=== PATIENT | female | born 1945 | race Caucasian/White ===

== ENCOUNTER 2021-01-19 15:01 | Inpatient (IN) | payer MEDICARE, OTHER, SELFPAY ==
[2021-01-19 16:07] VITALS: BP 66/42; PULSE 58; RESP 17; TEMP 36.5; O2SAT 97; BMI 27.4
--- NOTE | 2021-01-19 16:08 | W.ED.GENADLT ---
Documented by User: Herman Yee DO 01/21/21 17:01 HPI - General Adult General: Chief complaint: ER Hold Stated complaint: PAIN PEEING Time Seen by Provider: 01/19/21 16:07 History of Present Illness: HPI narrative: 76-year-old female presents emergency with complaints of difficulty urinating. No family present she has some right-sided weakness is reported to have previously had a CVA with right-sided weakness. She came in by EMS. She answers questions but has a very weak voice she will follow simple commands and she tracks well. She denies any fever, diarrhea or cough at home. Onset (ago): unknown Severity: moderate Relieving factors: none Exacerbating factors: none Associated symptoms: Reports confusion, malaise and weakness; Deny chest pain, cough, diaphoresis, decreased appetite, dyspnea, fevers/chills, headache(s), nausea, rash, palpitations, seizures, short of breath, syncope or vomiting Treatments prior to arrival: none Review of Systems Const: Reports: malaise; Denies: diaphoresis ENMT: Denies: throat pain, ear or mastoid pain, nasal discharge or nasal congestion Card: Denies: chest pain, palpitations or syncope Resp: Denies: dyspnea GI: Denies: nausea or vomiting : Reports: difficulty voiding and dysuria; Denies: flank pain, urinary frequency or urinary urgency Skin/Breast: Denies: rash Neuro: Reports: confusion; Denies: headache(s) [facility] ED PFSH: Medical History Afib CAD (coronary artery disease) CVA (cerebral vascular accident) Diabetes GI bleed TIA (transient ischemic attack) Ulcerative (chronic) enterocolitis Surgical History Hx of CABG Family History Other CAD (coronary artery disease) Stroke Social History Smoking and tobacco status: never smoked Alcohol intake: never Substance/Drug Use: never Housing: House Physical Exam HENMT: COMMON NORMALS: normocephalic, atraumatic and hearing grossly normal bilaterally HEAD & SCALP: normocephalic and atraumatic Eye: COMMON NORMALS: Equal, round and reactive pupils present, EOMs intact bilaterally, conjunctivae normal and no scleral icterus CONJUNCTIVA: Yes conjunctivae normal PUPIL: Yes Equal, round and reactive pupils present Neck/C-Spine: COMMON NORMALS: no JVD Resp: COMMON NORMALS: normal respiratory effort, No retractions, No use of accessory muscles and clear to auscultation bilaterally AUSCULTATION: clear to auscultation bilaterally Cardio: COMMON NORMALS: no JVD, regular rate, regular rhythm and No murmurs present (Cardio) RATE: regular rate RHYTHM: regular rhythm GI: COMMON NORMALS: Soft to palpation and No hepatosplenomegaly present AUSCULTATION: Yes normoactive bowel sounds PALPATION: Yes Soft to palpation, No Tenderness to palpation present (GI), No Guarding due to palpation present (GI) and Yes No hepatosplenomegaly present Extremity: COMMON NORMALS: normal to inspection, capillary refill normal, no clubbing, cyanosis or edema, no calf tenderness and no pedal edema Skin: COMMON NORMALS: no rashes or lesions noted GENERAL SKIN EXAM: no rashes or lesions noted Course Vital Signs: Vital signs: Vital Signs Temperature 97.6 F 01/21/21 15:45 Pulse Rate 60 01/21/21 15:45 Respiratory Rate 18 01/21/21 15:45 Blood Pressure 131/72 01/21/21 15:45 Pulse Oximetry 96 01/21/21 15:45 MDM - General Adult MDM Narrative: Medical decision making narrative: NIH score assessed. There is no one available to tell us what her last known well time is. Nor to establish what her baseline is. There is history of previous strokes evidently with some right-sided weakness I believe there is probable overlap between today's episode and her old but we cannot determine. Turned over to Dr. Snider at change of see his note from diagnosis and disposition. Lab Data: Labs: Lab Results 01/19/21 01/19/21 01/19/21 Range/Units 16:11 16:11 16:11 WBC 11.2 H (4.0-10.0) 10^3/ uL RBC 4.54 (4.1-5.3) 10^6/u L Hgb 13.7 (11.5-15.3) g/dL Hct 41.1 (37.0-47.0) % MCV 90.5 (81-99) fL MCH 30.2 (28.0-34.0) pg MCHC 33.3 (30.0-36.0) g/dL RDW 13.7 (12.1-15.1) % Plt Count 259 (130-400) 10^3/c mm MPV 10.5 H (7.4-10.4) fL Neut % (Auto) 60.9 % Lymph % (Auto) 30.3 % Faulkner % (Auto) 7.3 % Eos % (Auto) 0.5 % Baso % (Auto) 0.7 % Neut # (Auto) 6.80 (1.8-7.7) 10^3/u L Lymph # (Auto) 3.4 (0.8-4.8) 10^3/u L Faulkner # (Auto) 0.8 (0.2-0.9) 10^3/u L Eos # (Auto) 0.1 (0.0-0.8) 10^3/u L Baso # (Auto) 0.1 (0.0-0.1) 10^3/u L Nucleated RBC % (a uto) 0 % Nucleated RBCs # 0.0 /100WBC Sodium 141 (136-145) mmol/L Potassium 3.7 (3.5-5.1) mmol/L Chloride 103 (98-107) mmol/L Carbon Dioxide 24 (22-29) mmol/L Anion Gap 17.7 (5-19) BUN 16 (8-23) mg/dL Creatinine 0.8 (0.5-0.9) mg/dL GFR Calculation Not Reportable Glucose 151 H (65-115) mg/dL POC Glucose (70-110) mg/dL Calculated Osmolal ity 296 H (285-295) mOsm/k g Lactic Acid 2.1 (0.5-2.2) mmol/L Calcium 9.3 (8.5-10.5) mg/dL Magnesium (1.7-2.3) mg/dL Total Bilirubin 0.7 (0.15-1.2) mg/dL AST 30 (0-32) U/L ALT 26 (0-33) U/L Alkaline Phosphata se 77 (35-105) IU/L Creatine Kinase 59 (26-192) U/L Troponin T Baselin e (0-10) ng/L Total Protein 6.6 (6.6-8.7) g/dL Albumin 4.1 (3.5-5.2) g/dL Globulin 2.5 (1.3-4.6) g/dL Lipase 48 (13-60) U/L TSH (0.27-4.20) uIU/ mL Urine Color (Yellow) Urine Appearance (CLEAR) Urine pH (5-7) Ur Specific Gravit y (1.005-1.030) Urine Protein (Negative) Urine Glucose (UA) (Normal) Urine Ketones (Negative) Urine Blood (Negative) Urine Nitrate (Negative) Urine Bilirubin (Negative) Urine Urobilinogen (Negative) mg/dL Ur Leukocyte Ching ase (Negative) SARS-CoV-2 Ag (Rap id) (Negative) 01/19/21 01/19/21 01/19/21 Range/Units 16:11 16:15 16:17 WBC (4.0-10.0) 10^3/ uL RBC (4.1-5.3) 10^6/u L Hgb (11.5-15.3) g/dL Hct (37.0-47.0) % MCV (81-99) fL MCH (28.0-34.0) pg MCHC (30.0-36.0) g/dL RDW (12.1-15.1) % Plt Count (130-400) 10^3/c mm MPV (7.4-10.4) fL Neut % (Auto) % Lymph % (Auto) % Faulkner % (Auto) % Eos % (Auto) % Baso % (Auto) % Neut # (Auto) (1.8-7.7) 10^3/u L Lymph # (Auto) (0.8-4.8) 10^3/u L Faulkner # (Auto) (0.2-0.9) 10^3/u L Eos # (Auto) (0.0-0.8) 10^3/u L Baso # (Auto) (0.0-0.1) 10^3/u L Nucleated RBC % (a uto) % Nucleated RBCs # /100WBC Sodium (136-145) mmol/L Potassium (3.5-5.1) mmol/L Chloride (98-107) mmol/L Carbon Dioxide (22-29) mmol/L Anion Gap (5-19) BUN (8-23) mg/dL Creatinine (0.5-0.9) mg/dL GFR Calculation Glucose (65-115) mg/dL POC Glucose 154 H (70-110) mg/dL Calculated Osmolal ity (285-295) mOsm/k g Lactic Acid (0.5-2.2) mmol/L Calcium (8.5-10.5) mg/dL Magnesium (1.7-2.3) mg/dL Total Bilirubin (0.15-1.2) mg/dL AST (0-32) U/L ALT (0-33) U/L Alkaline Phosphata se (35-105) IU/L Creatine Kinase (26-192) U/L Troponin T Baselin e 15 H (0-10) ng/L Total Protein (6.6-8.7) g/dL Albumin (3.5-5.2) g/dL Globulin (1.3-4.6) g/dL Lipase (13-60) U/L TSH 3.73 (0.27-4.20) uIU/ mL Urine Color (Yellow) Urine Appearance (CLEAR) Urine pH (5-7) Ur Specific Gravit y (1.005-1.030) Urine Protein (Negative) Urine Glucose (UA) (Normal) Urine Ketones (Negative) Urine Blood (Negative) Urine Nitrate (Negative) Urine Bilirubin (Negative) Urine Urobilinogen (Negative) mg/dL Ur Leukocyte Ching ase (Negative) SARS-CoV-2 Ag (Rap id) (Negative) 01/19/21 01/20/21 01/20/21 Range/Units 16:57 10:40 10:40 WBC 9.5 (4.0-10.0) 10^3/ uL RBC 3.70 L (4.1-5.3) 10^6/u L Hgb 11.4 L (11.5-15.3) g/dL Hct 34.8 L (37.0-47.0) % MCV 94.1 (81-99) fL MCH 30.8 (28.0-34.0) pg MCHC 32.8 (30.0-36.0) g/dL RDW 14.2 (12.1-15.1) % Plt Count 199 (130-400) 10^3/c mm MPV 10.5 H (7.4-10.4) fL Neut % (Auto) 61.2 % Lymph % (Auto) 28.4 % Faulkner % (Auto) 8.9 % Eos % (Auto) 0.7 % Baso % (Auto) 0.5 % Neut # (Auto) 5.78 (1.8-7.7) 10^3/u L Lymph # (Auto) 2.7 (0.8-4.8) 10^3/u L Faulkner # (Auto) 0.8 (0.2-0.9) 10^3/u L Eos # (Auto) 0.1 (0.0-0.8) 10^3/u L Baso # (Auto) 0.1 (0.0-0.1) 10^3/u L Nucleated RBC % (a uto) 0 % Nucleated RBCs # 0.0 /100WBC Sodium 140 (136-145) mmol/L Potassium 2.8 L* D (3.5-5.1) mmol/L Chloride 107 (98-107) mmol/L Carbon Dioxide 24 (22-29) mmol/L Anion Gap 11.8 (5-19) BUN 14 (8-23) mg/dL Creatinine 0.6 (0.5-0.9) mg/dL GFR Calculation Not Reportable Glucose 127 H (65-115) mg/dL POC Glucose (70-110) mg/dL Calculated Osmolal ity 292 (285-295) mOsm/k g Lactic Acid (0.5-2.2) mmol/L Calcium 8.7 (8.5-10.5) mg/dL Magnesium (1.7-2.3) mg/dL Total Bilirubin (0.15-1.2) mg/dL AST (0-32) U/L ALT (0-33) U/L Alkaline Phosphata se (35-105) IU/L Creatine Kinase (26-192) U/L Troponin T Baselin e (0-10) ng/L Total Protein (6.6-8.7) g/dL Albumin (3.5-5.2) g/dL Globulin (1.3-4.6) g/dL Lipase (13-60) U/L TSH (0.27-4.20) uIU/ mL Urine Color Yellow (Yellow) Urine Appearance Clear (CLEAR) Urine pH 6 (5-7) Ur Specific Gravit y 1.020 (1.005-1.030) Urine Protein Neg (Negative) Urine Glucose (UA) Norm (Normal) Urine Ketones Negative (Negative) Urine Blood Neg (Negative) Urine Nitrate Negative (Negative) Urine Bilirubin Neg (Negative) Urine Urobilinogen Norm (Negative) mg/dL Ur Leukocyte Ching ase Negative (Negative) SARS-CoV-2 Ag (Rap id) (Negative) 01/20/21 01/21/21 01/21/21 Range/Units 10:40 05:02 05:02 WBC 7.8 (4.0-10.0) 10^3/ uL RBC 3.77 L (4.1-5.3) 10^6/u L Hgb 11.5 (11.5-15.3) g/dL Hct 35.1 L (37.0-47.0) % MCV 93.1 (81-99) fL MCH 30.5 (28.0-34.0) pg MCHC 32.8 (30.0-36.0) g/dL RDW 14.1 (12.1-15.1) % Plt Count 196 (130-400) 10^3/c mm MPV 10.9 H (7.4-10.4) fL Neut % (Auto) 52.1 % Lymph % (Auto) 36.2 % Faulkner % (Auto) 9.6 % Eos % (Auto) 1.4 % Baso % (Auto) 0.6 % Neut # (Auto) 4.04 (1.8-7.7) 10^3/u L Lymph # (Auto) 2.8 (0.8-4.8) 10^3/u L Faulkner # (Auto) 0.8 (0.2-0.9) 10^3/u L Eos # (Auto) 0.1 (0.0-0.8) 10^3/u L Baso # (Auto) 0.1 (0.0-0.1) 10^3/u L Nucleated RBC % (a uto) 0 % Nucleated RBCs # 0.0 /100WBC Sodium 143 (136-145) mmol/L Potassium 4.3 (3.5-5.1) mmol/L Chloride 110 H (98-107) mmol/L Carbon Dioxide 24 (22-29) mmol/L Anion Gap 13.3 (5-19) BUN 13 (8-23) mg/dL Creatinine 0.6 (0.5-0.9) mg/dL GFR Calculation Not Reportable Glucose 80 (65-115) mg/dL POC Glucose (70-110) mg/dL Calculated Osmolal ity 295 (285-295) mOsm/k g Lactic Acid (0.5-2.2) mmol/L Calcium 8.5 (8.5-10.5) mg/dL Magnesium 1.6 L (1.7-2.3) mg/dL Total Bilirubin (0.15-1.2) mg/dL AST (0-32) U/L ALT (0-33) U/L Alkaline Phosphata se (35-105) IU/L Creatine Kinase (26-192) U/L Troponin T Baselin e (0-10) ng/L Total Protein (6.6-8.7) g/dL Albumin (3.5-5.2) g/dL Globulin (1.3-4.6) g/dL Lipase (13-60) U/L TSH (0.27-4.20) uIU/ mL Urine Color (Yellow) Urine Appearance (CLEAR) Urine pH (5-7) Ur Specific Gravit y (1.005-1.030) Urine Protein (Negative) Urine Glucose (UA) (Normal) Urine Ketones (Negative) Urine Blood (Negative) Urine Nitrate (Negative) Urine Bilirubin (Negative) Urine Urobilinogen (Negative) mg/dL Ur Leukocyte Ching ase (Negative) SARS-CoV-2 Ag (Rap id) (Negative) 01/21/21 Range/Units 12:36 WBC (4.0-10.0) 10^3/ uL RBC (4.1-5.3) 10^6/u L Hgb (11.5-15.3) g/dL Hct (37.0-47.0) % MCV (81-99) fL MCH (28.0-34.0) pg MCHC (30.0-36.0) g/dL RDW (12.1-15.1) % Plt Count (130-400) 10^3/c mm MPV (7.4-10.4) fL Neut % (Auto) % Lymph % (Auto) % Faulkner % (Auto) % Eos % (Auto) % Baso % (Auto) % Neut # (Auto) (1.8-7.7) 10^3/u L Lymph # (Auto) (0.8-4.8) 10^3/u L Faulkner # (Auto) (0.2-0.9) 10^3/u L Eos # (Auto) (0.0-0.8) 10^3/u L Baso # (Auto) (0.0-0.1) 10^3/u L Nucleated RBC % (a uto) % Nucleated RBCs # /100WBC Sodium (136-145) mmol/L Potassium (3.5-5.1) mmol/L Chloride (98-107) mmol/L Carbon Dioxide (22-29) mmol/L Anion Gap (5-19) BUN (8-23) mg/dL Creatinine (0.5-0.9) mg/dL GFR Calculation Glucose (65-115) mg/dL POC Glucose (70-110) mg/dL Calculated Osmolal ity (285-295) mOsm/k g Lactic Acid (0.5-2.2) mmol/L Calcium (8.5-10.5) mg/dL Magnesium (1.7-2.3) mg/dL Total Bilirubin (0.15-1.2) mg/dL AST (0-32) U/L ALT (0-33) U/L Alkaline Phosphata se (35-105) IU/L Creatine Kinase (26-192) U/L Troponin T Baselin e (0-10) ng/L Total Protein (6.6-8.7) g/dL Albumin (3.5-5.2) g/dL Globulin (1.3-4.6) g/dL Lipase (13-60) U/L TSH (0.27-4.20) uIU/ mL Urine Color (Yellow) Urine Appearance (CLEAR) Urine pH (5-7) Ur Specific Gravit y (1.005-1.030) Urine Protein (Negative) Urine Glucose (UA) (Normal) Urine Ketones (Negative) Urine Blood (Negative) Urine Nitrate (Negative) Urine Bilirubin (Negative) Urine Urobilinogen (Negative) mg/dL Ur Leukocyte Ching ase (Negative) SARS-CoV-2 Ag (Rap id) Negative (Negative) Discharge Plan Discharge Patient Disposition: Admitted As Inpatient Admit Provider: Clara Funk Clinical Impression: Acute CVA (cerebrovascular accident) Condition: Stable Coding Level of Care Code 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 Comprehensive NIH stroke score NIHSS Level Of Consciousness - 1a: 1 Level Of Consciousness Questions - 1b: One Correct Level Of Consciousness Commands - 1c: Both Correct Best Gaze - 2: Normal Visual Bateman - 3: No Visual Loss Facial Palsy - 4: Minor Paralysis Motor Arm Right - 5: No Drift Motor Arm Left - 5: No Drift Motor Leg Right - 6: Drift Motor Leg Left - 6: No Drift Limb Ataxia - 7: Present In One Limb Sensory - 8: Normal Best Language - 9: Mild/Moderate Aphasia Dysarthia - 10: Mild/Moderate Dysarthia Extinction And Inattention - 11: 0 Score Total Score: 7 Documented by User: Kevin Snider MD 01/19/21 19:42 HPI - General Adult General: Chief complaint: ER Hold Stated complaint: PAIN PEEING Time Seen by Provider: 01/19/21 16:07 [facility] ED PFSH: Medical History Afib CAD (coronary artery disease) CVA (cerebral vascular accident) Diabetes GI bleed TIA (transient ischemic attack) Ulcerative (chronic) enterocolitis Surgical History Hx of CABG Family History Other CAD (coronary artery disease) Stroke Social History Smoking and tobacco status: never smoked Alcohol intake: never Substance/Drug Use: never Housing: House Course Vital Signs: Vital signs: Vital Signs Temperature 97.6 F 01/21/21 15:45 Pulse Rate 60 01/21/21 15:45 Respiratory Rate 18 01/21/21 15:45 Blood Pressure 131/72 01/21/21 15:45 Pulse Oximetry 96 01/21/21 15:45 MDM - General Adult MDM Narrative: Medical decision making narrative: Patient presents here with right-sided weakness with a possible CVA. CT showed subacute versus chronic. Her last known well is not known as well or her exact baseline. I spoke to the hospitalist will admit for MRI. Patient has been stable while here. Lab Data: Labs: Lab Results 01/19/21 01/19/21 01/19/21 Range/Units 16:11 16:11 16:11 WBC 11.2 H (4.0-10.0) 10^3/ uL RBC 4.54 (4.1-5.3) 10^6/u L Hgb 13.7 (11.5-15.3) g/dL Hct 41.1 (37.0-47.0) % MCV 90.5 (81-99) fL MCH 30.2 (28.0-34.0) pg MCHC 33.3 (30.0-36.0) g/dL RDW 13.7 (12.1-15.1) % Plt Count 259 (130-400) 10^3/c mm MPV 10.5 H (7.4-10.4) fL Neut % (Auto) 60.9 % Lymph % (Auto) 30.3 % Faulkner % (Auto) 7.3 % Eos % (Auto) 0.5 % Baso % (Auto) 0.7 % Neut # (Auto) 6.80 (1.8-7.7) 10^3/u L Lymph # (Auto) 3.4 (0.8-4.8) 10^3/u L Faulkner # (Auto) 0.8 (0.2-0.9) 10^3/u L Eos # (Auto) 0.1 (0.0-0.8) 10^3/u L Baso # (Auto) 0.1 (0.0-0.1) 10^3/u L Nucleated RBC % (a uto) 0 % Nucleated RBCs # 0.0 /100WBC Sodium 141 (136-145) mmol/L Potassium 3.7 (3.5-5.1) mmol/L Chloride 103 (98-107) mmol/L Carbon Dioxide 24 (22-29) mmol/L Anion Gap 17.7 (5-19) BUN 16 (8-23) mg/dL Creatinine 0.8 (0.5-0.9) mg/dL GFR Calculation Not Reportable Glucose 151 H (65-115) mg/dL POC Glucose (70-110) mg/dL Calculated Osmolal ity 296 H (285-295) mOsm/k g Lactic Acid 2.1 (0.5-2.2) mmol/L Calcium 9.3 (8.5-10.5) mg/dL Magnesium (1.7-2.3) mg/dL Total Bilirubin 0.7 (0.15-1.2) mg/dL AST 30 (0-32) U/L ALT 26 (0-33) U/L Alkaline Phosphata se 77 (35-105) IU/L Creatine Kinase 59 (26-192) U/L Troponin T Baselin e (0-10) ng/L Total Protein 6.6 (6.6-8.7) g/dL Albumin 4.1 (3.5-5.2) g/dL Globulin 2.5 (1.3-4.6) g/dL Lipase 48 (13-60) U/L TSH (0.27-4.20) uIU/ mL Urine Color (Yellow) Urine Appearance (CLEAR) Urine pH (5-7) Ur Specific Gravit y (1.005-1.030) Urine Protein (Negative) Urine Glucose (UA) (Normal) Urine Ketones (Negative) Urine Blood (Negative) Urine Nitrate (Negative) Urine Bilirubin (Negative) Urine Urobilinogen (Negative) mg/dL Ur Leukocyte Ching ase (Negative) SARS-CoV-2 Ag (Rap id) (Negative) 01/19/21 01/19/21 01/19/21 Range/Units 16:11 16:15 16:17 WBC (4.0-10.0) 10^3/ uL RBC (4.1-5.3) 10^6/u L Hgb (11.5-15.3) g/dL Hct (37.0-47.0) % MCV (81-99) fL MCH (28.0-34.0) pg MCHC (30.0-36.0) g/dL RDW (12.1-15.1) % Plt Count (130-400) 10^3/c mm MPV (7.4-10.4) fL Neut % (Auto) % Lymph % (Auto) % Faulkner % (Auto) % Eos % (Auto) % Baso % (Auto) % Neut # (Auto) (1.8-7.7) 10^3/u L Lymph # (Auto) (0.8-4.8) 10^3/u L Faulkner # (Auto) (0.2-0.9) 10^3/u L Eos # (Auto) (0.0-0.8) 10^3/u L Baso # (Auto) (0.0-0.1) 10^3/u L Nucleated RBC % (a uto) % Nucleated RBCs # /100WBC Sodium (136-145) mmol/L Potassium (3.5-5.1) mmol/L Chloride (98-107) mmol/L Carbon Dioxide (22-29) mmol/L Anion Gap (5-19) BUN (8-23) mg/dL Creatinine (0.5-0.9) mg/dL GFR Calculation Glucose (65-115) mg/dL POC Glucose 154 H (70-110) mg/dL Calculated Osmolal ity (285-295) mOsm/k g Lactic Acid (0.5-2.2) mmol/L Calcium (8.5-10.5) mg/dL Magnesium (1.7-2.3) mg/dL Total Bilirubin (0.15-1.2) mg/dL AST (0-32) U/L ALT (0-33) U/L Alkaline Phosphata se (35-105) IU/L Creatine Kinase (26-192) U/L Troponin T Baselin e 15 H (0-10) ng/L Total Protein (6.6-8.7) g/dL Albumin (3.5-5.2) g/dL Globulin (1.3-4.6) g/dL Lipase (13-60) U/L TSH 3.73 (0.27-4.20) uIU/ mL Urine Color (Yellow) Urine Appearance (CLEAR) Urine pH (5-7) Ur Specific Gravit y (1.005-1.030) Urine Protein (Negative) Urine Glucose (UA) (Normal) Urine Ketones (Negative) Urine Blood (Negative) Urine Nitrate (Negative) Urine Bilirubin (Negative) Urine Urobilinogen (Negative) mg/dL Ur Leukocyte Ching ase (Negative) SARS-CoV-2 Ag (Rap id) (Negative) 01/19/21 01/20/21 01/20/21 Range/Units 16:57 10:40 10:40 WBC 9.5 (4.0-10.0) 10^3/ uL RBC 3.70 L (4.1-5.3) 10^6/u L Hgb 11.4 L (11.5-15.3) g/dL Hct 34.8 L (37.0-47.0) % MCV 94.1 (81-99) fL MCH 30.8 (28.0-34.0) pg MCHC 32.8 (30.0-36.0) g/dL RDW 14.2 (12.1-15.1) % Plt Count 199 (130-400) 10^3/c mm MPV 10.5 H (7.4-10.4) fL Neut % (Auto) 61.2 % Lymph % (Auto) 28.4 % Faulkner % (Auto) 8.9 % Eos % (Auto) 0.7 % Baso % (Auto) 0.5 % Neut # (Auto) 5.78 (1.8-7.7) 10^3/u L Lymph # (Auto) 2.7 (0.8-4.8) 10^3/u L Faulkner # (Auto) 0.8 (0.2-0.9) 10^3/u L Eos # (Auto) 0.1 (0.0-0.8) 10^3/u L Baso # (Auto) 0.1 (0.0-0.1) 10^3/u L Nucleated RBC % (a uto) 0 % Nucleated RBCs # 0.0 /100WBC Sodium 140 (136-145) mmol/L Potassium 2.8 L* D (3.5-5.1) mmol/L Chloride 107 (98-107) mmol/L Carbon Dioxide 24 (22-29) mmol/L Anion Gap 11.8 (5-19) BUN 14 (8-23) mg/dL Creatinine 0.6 (0.5-0.9) mg/dL GFR Calculation Not Reportable Glucose 127 H (65-115) mg/dL POC Glucose (70-110) mg/dL Calculated Osmolal ity 292 (285-295) mOsm/k g Lactic Acid (0.5-2.2) mmol/L Calcium 8.7 (8.5-10.5) mg/dL Magnesium (1.7-2.3) mg/dL Total Bilirubin (0.15-1.2) mg/dL AST (0-32) U/L ALT (0-33) U/L Alkaline Phosphata se (35-105) IU/L Creatine Kinase (26-192) U/L Troponin T Baselin e (0-10) ng/L Total Protein (6.6-8.7) g/dL Albumin (3.5-5.2) g/dL Globulin (1.3-4.6) g/dL Lipase (13-60) U/L TSH (0.27-4.20) uIU/ mL Urine Color Yellow (Yellow) Urine Appearance Clear (CLEAR) Urine pH 6 (5-7) Ur Specific Gravit y 1.020 (1.005-1.030) Urine Protein Neg (Negative) Urine Glucose (UA) Norm (Normal) Urine Ketones Negative (Negative) Urine Blood Neg (Negative) Urine Nitrate Negative (Negative) Urine Bilirubin Neg (Negative) Urine Urobilinogen Norm (Negative) mg/dL Ur Leukocyte Ching ase Negative (Negative) SARS-CoV-2 Ag (Rap id) (Negative) 01/20/21 01/21/21 01/21/21 Range/Units 10:40 05:02 05:02 WBC 7.8 (4.0-10.0) 10^3/ uL RBC 3.77 L (4.1-5.3) 10^6/u L Hgb 11.5 (11.5-15.3) g/dL Hct 35.1 L (37.0-47.0) % MCV 93.1 (81-99) fL MCH 30.5 (28.0-34.0) pg MCHC 32.8 (30.0-36.0) g/dL RDW 14.1 (12.1-15.1) % Plt Count 196 (130-400) 10^3/c mm MPV 10.9 H (7.4-10.4) fL Neut % (Auto) 52.1 % Lymph % (Auto) 36.2 % Faulkner % (Auto) 9.6 % Eos % (Auto) 1.4 % Baso % (Auto) 0.6 % Neut # (Auto) 4.04 (1.8-7.7) 10^3/u L Lymph # (Auto) 2.8 (0.8-4.8) 10^3/u L Faulkner # (Auto) 0.8 (0.2-0.9) 10^3/u L Eos # (Auto) 0.1 (0.0-0.8) 10^3/u L Baso # (Auto) 0.1 (0.0-0.1) 10^3/u L Nucleated RBC % (a uto) 0 % Nucleated RBCs # 0.0 /100WBC Sodium 143 (136-145) mmol/L Potassium 4.3 (3.5-5.1) mmol/L Chloride 110 H (98-107) mmol/L Carbon Dioxide 24 (22-29) mmol/L Anion Gap 13.3 (5-19) BUN 13 (8-23) mg/dL Creatinine 0.6 (0.5-0.9) mg/dL GFR Calculation Not Reportable Glucose 80 (65-115) mg/dL POC Glucose (70-110) mg/dL Calculated Osmolal ity 295 (285-295) mOsm/k g Lactic Acid (0.5-2.2) mmol/L Calcium 8.5 (8.5-10.5) mg/dL Magnesium 1.6 L (1.7-2.3) mg/dL Total Bilirubin (0.15-1.2) mg/dL AST (0-32) U/L ALT (0-33) U/L Alkaline Phosphata se (35-105) IU/L Creatine Kinase (26-192) U/L Troponin T Baselin e (0-10) ng/L Total Protein (6.6-8.7) g/dL Albumin (3.5-5.2) g/dL Globulin (1.3-4.6) g/dL Lipase (13-60) U/L TSH (0.27-4.20) uIU/ mL Urine Color (Yellow) Urine Appearance (CLEAR) Urine pH (5-7) Ur Specific Gravit y (1.005-1.030) Urine Protein (Negative) Urine Glucose (UA) (Normal) Urine Ketones (Negative) Urine Blood (Negative) Urine Nitrate (Negative) Urine Bilirubin (Negative) Urine Urobilinogen (Negative) mg/dL Ur Leukocyte Ching ase (Negative) SARS-CoV-2 Ag (Rap id) (Negative) 01/21/21 Range/Units 12:36 WBC (4.0-10.0) 10^3/ uL RBC (4.1-5.3) 10^6/u L Hgb (11.5-15.3) g/dL Hct (37.0-47.0) % MCV (81-99) fL MCH (28.0-34.0) pg MCHC (30.0-36.0) g/dL RDW (12.1-15.1) % Plt Count (130-400) 10^3/c mm MPV (7.4-10.4) fL Neut % (Auto) % Lymph % (Auto) % Faulkner % (Auto) % Eos % (Auto) % Baso % (Auto) % Neut # (Auto) (1.8-7.7) 10^3/u L Lymph # (Auto) (0.8-4.8) 10^3/u L Faulkner # (Auto) (0.2-0.9) 10^3/u L Eos # (Auto) (0.0-0.8) 10^3/u L Baso # (Auto) (0.0-0.1) 10^3/u L Nucleated RBC % (a uto) % Nucleated RBCs # /100WBC Sodium (136-145) mmol/L Potassium (3.5-5.1) mmol/L Chloride (98-107) mmol/L Carbon Dioxide (22-29) mmol/L Anion Gap (5-19) BUN (8-23) mg/dL Creatinine (0.5-0.9) mg/dL GFR Calculation Glucose (65-115) mg/dL POC Glucose (70-110) mg/dL Calculated Osmolal ity (285-295) mOsm/k g Lactic Acid (0.5-2.2) mmol/L Calcium (8.5-10.5) mg/dL Magnesium (1.7-2.3) mg/dL Total Bilirubin (0.15-1.2) mg/dL AST (0-32) U/L ALT (0-33) U/L Alkaline Phosphata se (35-105) IU/L Creatine Kinase (26-192) U/L Troponin T Baselin e (0-10) ng/L Total Protein (6.6-8.7) g/dL Albumin (3.5-5.2) g/dL Globulin (1.3-4.6) g/dL Lipase (13-60) U/L TSH (0.27-4.20) uIU/ mL Urine Color (Yellow) Urine Appearance (CLEAR) Urine pH (5-7) Ur Specific Gravit y (1.005-1.030) Urine Protein (Negative) Urine Glucose (UA) (Normal) Urine Ketones (Negative) Urine Blood (Negative) Urine Nitrate (Negative) Urine Bilirubin (Negative) Urine Urobilinogen (Negative) mg/dL Ur Leukocyte Ching ase (Negative) SARS-CoV-2 Ag (Rap id) Negative (Negative) Imaging Data^: CT Head: Radiologist's impression: [address] [place] [id number] [address] Scan Report Signed Patient: Carolina Barcenas Unit #: [id number] : 1945 Age/Sex: 76 / F ADM Date: 01/19/21 Loc: ER Room/Bed: Attending Dr: Ordering Provider/Ordering MD: Herman Yee DO Date of Service: 01/19/21 Procedure(s): CT head wo con* [id number] Accession Number(s): [id number] Report Number: [id number] PROCEDURE INFORMATION: Exam: CT Head Without Contrast Exam date and time: 01/19/2021 4:07 PM Age: 76 years old Clinical indication: Pain; Headache; Additional info: Weakness, HX parkinsons TECHNIQUE: Imaging protocol: Computed tomography of the head without contrast. Radiation optimization: All CT scans at this facility use at least one of these dose optimization techniques: automated exposure control; mA and/or kV adjustment per patient size (includes targeted exams where dose is matched to clinical indication); or iterative reconstruction. COMPARISON: CT head wo con* [id number] 04/29/2015 7:40 AM RADIATION DOSE METRICS: Total DLP (mGy-cm): 766.76 FINDINGS: Brain: Advanced low-attenuation signal within the periventricular and deep white matter tracts suggestive of chronic small vessel ischemic disease. No intracranial hemorrhage. Moderate diffuse cerebral atrophy. There is low attenuation change within the right anterolateral temporal lobe involving both the copeland and white matter which could indicate an age indeterminate infarct in this region. Bilateral chronic lacunar infarcts within the basal ganglia. Cerebral ventricles: No ventriculomegaly. Paranasal sinuses: Visualized sinuses are unremarkable. No fluid levels. Mastoid air cells: Visualized mastoid air cells are well aerated. Bones/joints: Unremarkable. No acute fracture. Soft tissues: Unremarkable. CT/CT head wo con* [id number] IMPRESSION: 1. No intracranial hemorrhage. 2. Low-attenuation signal within the anterolateral right temporal lobe. Imaging appearance is favored to be represent chronic sequela of prior infarct/insult as there is asymmetric atrophy of the right temporal lobe. If there is clinical concern for acute/subacute component, this can be further evaluate with MRI of the brain. 3. Sequela of advanced chronic small vessel ischemic disease and bilateral lacunar infarcts. Moderate diffuse cerebral atrophy. Radiation Dose CTDIVOL = (mGy): DLP = 766.76 (mGy-cm) Discharge Plan Discharge Patient Disposition: Admitted As Inpatient Admit Provider: Clara Funk Clinical Impression: Acute CVA (cerebrovascular accident) Condition: Stable Coding Level of Care Code ED Photographic Equipment Mechanic for Karlg Fwd Exam Comprehensive
--- NOTE | 2021-01-19 16:11 | ECG_ITS ---
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 Measurements Intervals G[place] Rate: 53 P: 109 AL: 218 QRS: 18 QRSD: 110 T: 26 QT: 475 QTc: 448 Interpretive Statements SINUS BRADYCARDIA WITH FIRST DEGREE AV BLOCK WITH OCCASIONAL SUPRAVENTRICULAR PREMATURE COMPLEXES SEPTAL MYOCARDIAL INFARCTION [40+ ms Q WAVE IN V1/V2], PROBABLY OLD Compared to ECG 04/29/2015 18:53:30 First degree AV block now present Myocardial infarct finding now present Sinus rhythm no longer present T-wave abnormality no longer present Possible ischemia no longer present Electronically Signed On 01-22-2021 9:54:54 CDT by Carolina Novoa M.D. [id number]
[2021-01-19 16:17] LABS: Glucose Point of Care 154 mg/dL (70-110)
[2021-01-19 16:23] LABS: Basophils # 0.1 10^3/uL (0.0-0.1); Basophils % 0.7 %; Eosinophils # 0.1 10^3/uL (0.0-0.8); Eosinophils % 0.5 %; Hematocrit 41.1 % (37.0-47.0); Hemoglobin 13.7 g/dL (11.5-15.3); Lymphocytes # 3.4 10^3/uL (0.8-4.8); Lymphocytes % 30.3 %; Mean Corpuscular HGB Conc 33.3 g/dL (30.0-36.0); Mean Corpuscular Hemoglobin 30.2 pg (28.0-34.0); Mean Corpuscular Volume 90.5 fL (81-99); Mean Platelet Volume 10.5 fL (7.4-10.4); Monocytes # 0.8 10^3/uL (0.2-0.9); Monocytes % 7.3 %; Neutrophils % 60.9 %; Nucleated Red Blood Cells % 0 %; Platelet Count 259 10^3/cmm (130-400); Red Blood Count 4.54 10^6/uL (4.1-5.3); Red Cell Distribution Width 13.7 % (12.1-15.1); White Blood Count 11.2 10^3/uL (4.0-10.0)
[2021-01-19 16:41] LABS: Alanine Aminotransferase 26 U/L (0-33); Albumin Level 4.1 g/dL (3.5-5.2); Alkaline Phosphatase 77 IU/L (35-105); Blood Urea Nitrogen 16 mg/dL (8-23); Calcium 9.3 mg/dL (8.5-10.5); Carbon Dioxide 24 mmol/L (22-29); Chloride 103 mmol/L (98-107); Creatine Phosphokinase 59 U/L (26-192); Creatinine Clr Calc Pharmacy 54.4958; Globulin 2.5 g/dL (1.3-4.6); Glucose 151 mg/dL (65-115); Lipase 48 U/L (13-60); Osmolality Calculated 296 mOsm/kg (285-295); Sodium 141 mmol/L (136-145); Total Bilirubin 0.7 mg/dL (0.15-1.2); Total Protein 6.6 g/dL (6.6-8.7)
[2021-01-19 16:42] LABS: Lactic Sepsis W/Reflex 2.1 mmol/L (0.5-2.2)
[2021-01-19 16:46] LABS: Troponin(5th) Baseline 15 ng/L (0-10)
[2021-01-19 16:49] LABS: Anion Gap 17.7 (5-19); Aspartate Amino Transferase 30 U/L (0-32); Potassium 3.7 mmol/L (3.5-5.1)
[2021-01-19] MEDS: sodium chloride 0.9% 2,109.21 ML 2109.21 ML IV (16:50)
[2021-01-19 16:58] VITALS: BP 114/51; PULSE 54; RESP 19; O2SAT 94
[2021-01-19 17:49] LABS: Add Urine Microscopic? NO; Charge for UA Resulting for Rev
[2021-01-19 17:52] LABS: Bilirubin Urine Neg (Negative); Blood Urine Neg (Negative); Glucose Urine UA Norm (Normal); Ketones Urine Negative (Negative); Leukocyte Esterase Urine Negative (Negative); Nitrate Urine Negative (Negative); Protein Urine Neg (Negative); Urine Appearance Clear (CLEAR); Urine Color Yellow (Yellow); Urobilinogen Urine Norm (Negative); pH Urine 6 (5-7)
[2021-01-19 18:03] LABS: Reflex Lactate Order REFLEX LACTIC ORDERD
--- NOTE | 2021-01-19 18:39 | PC.PHAR ---
PT UNABLE TO CONFIRM MEDICATIONS. PT STATES THAT HER SON HELPS HER. I SPOKE WITH HIM, AT LENGTH, BUT I DON'T THINK HE KNOWS MUCH ABOUT HER MEDICATION. WE WENT OVER THEM AT FIRST, THEN HE REALLY GOT OFF TARGET. MUCH LATER IN THE CONVERSATION, PT'S SON STATES THAT SHE WAS RECENTLY IN A HALFWAY. TRIED TO CONTACT THEM AND GET A MED LIST, BUT COULD NOT. LATER STILL, HE STATES THAT SHE HAS HOME HEALTH. WE TRIED REACHING HOME HEALTH, BUT THEY WERE CLOSED. RIGHT NOW, GOING BY HER MEDICATION HISTORY AND PHARMACY LIST.
[2021-01-19 18:44] VITALS: BP 146/66; PULSE 53; RESP 19; O2SAT 96
--- NOTE | 2021-01-19 19:15 | PC.PHAR ---
PT'S HOME HEALTH NURSE CALLED IN AND CONFIRMED ALL OF HER MEDICATION. PLEASE DISREGARD THE LAST NOTE.
--- NOTE | 2021-01-19 19:21 | P.HP_ITS ---
Providers/Chief Complaint Primary Care Provider: Jairo Butterfield DO Chief Complaint: PAIN PEEING History of Present Illness Carolina Barcenas is a 76 year old female who has a history of multiple strokes in the past, history of atrial fibrillation not a candidate of anticoagulation due to risk of fall, presented today with chief complaint of generalized weakness. Patient is stating that she spent 6 weeks at [facility] after her base of the brain stroke(she is not sure about the etiology however endorsing multiple history of stroke in the past). She was discharged on Tuesday from that facility last week. At home she has been experiencing weakness and lethargy. Initially she was able to use walker but her son has been very cautious and due to increased weakness he sent her to the hospital for further evaluation. From previous strokes she has weakness of right side of her body. Endorsing a fall yesterday which is attributing to slipping because of her silky bed sheet. She was trying to reposition herself after using bedside commode when slipped off the bed and landed on the floor. She is denying chest pain or syncopal events. No recent fever shortness of breath or chest pain. She has not noticed any new change in her vision. She was an avid reader however not able to read books anymore Diagnosis in the ER, she has left-sided inferior quadrantanopsia otherwise no new weakness noted, hemodynamically stable, patient will be admitted for MRI in the morning CT head showed concerning changes of right temporal lobe and bilateral lacunar infarct Patient was eating without any difficulty when entered the room, NIH score during my evaluation 1 She has been vaccinated with first dose of messenger RNA vaccine about 2 weeks ago, denies shortness of breath, fever, diarrhea Review of Systems Const: Reports: body aches, fatigue and malaise; Denies: fever(s) Eyes: Denies: change in vision ENMT: Denies: throat pain Card: Denies: chest pain Resp: Denies: dyspnea GI: Denies: abdominal pain : Denies: flank pain Musc: Reports: joint stiffness and muscle cramps; Denies: neck pain Skin/Breast: Denies: rash Neuro: Reports: difficulty walking Psych: Denies: anxiety Endo: Denies: polyuria Raymond/Lymph: Denies: easy bruising All/Imm: Denies: urticaria Medications/Allergies Home Medications Medication Instructions Recorded Confirmed Last Taken Type amiodarone 200 mg PO DAILY 01/19/21 01/19/21 01/19/21 History apixaban [Eliquis] 5 mg PO BID 01/19/21 01/19/21 Unknown History citalopram [Celexa] 20 mg PO BEDTIME 01/19/21 01/19/21 01/18/21 History clonidine HCl 0.1 mg PO PRN 01/19/21 01/19/21 Unknown History gabapentin 100 mg PO DAILY 01/19/21 01/19/21 01/19/21 History hydrocodone-acetaminophen [[place]] 1 tab PO Q4H PRN 01/19/21 01/19/21 Unknown History isosorbide mononitrate 60 mg PO DAILY 01/19/21 01/19/21 01/19/21 History lisinopril 20 mg PO DAILY 01/19/21 01/19/21 01/19/21 History metoprolol tartrate 50 mg PO DAILY 01/19/21 01/19/21 01/19/21 History nitrofurantoin monohyd/m-cryst 100 mg PO Q12H 01/19/21 01/19/21 01/19/21 History [Macrobid] omeprazole 10 mg PO DAILY 01/19/21 01/19/21 01/19/21 History Allergies Allergy/AdvReac Type Severity Reaction Status Date / Time codeine Allergy ALGY-Anaphy Verified 01/19/21 16:06 laxis PFSH Acute PFSH: Medical History Afib CAD (coronary artery disease) CVA (cerebral vascular accident) Diabetes GI bleed TIA (transient ischemic attack) Ulcerative (chronic) enterocolitis Surgical History Hx of CABG Family History Other CAD (coronary artery disease) Stroke Social History Smoking and tobacco status: never smoked Alcohol intake: never Substance/Drug Use: never Housing: House Vitals/I&O/Wt Last Vital Signs Temp 97.7 F 01/19/21 16:07 Pulse 53 L 01/19/21 18:44 Resp 19 H 01/19/21 18:44 BP 146/66 01/19/21 18:44 Pulse Ox 96 01/19/21 18:44 Weight last 48 hrs Weight 70.307 kg Physical Exam Narrative: EXAM NARRATIVE: Very pleasant elderly female Appears stated age Euvolemic S1, S2 variable no murmur appreciated no signs of heart failure Abdomen soft EOMI, PERRLA Left-sided inferior quadrantanopsia Sensations intact NIH 1 for mild weakness of right arm and leg Awake alert into x3 GCS 15 No acute respite distress saturating well on room air No joint swelling or signs of cellulitis Bilateral breath sounds without adventitious rhonchi or crackles Data : 01/19/21 16:11 01/19/21 16:11 A&P Assessment and plan (1) Acute CVA (cerebrovascular accident): Status: Acute Additional A&P Information SubAcute CVA Patient is endorsing history of recurrent TIA/CVA Per CT scan of head seems to be showing chronic sequelae of prior stroke Has history of atrial fibrillation, not a candidate of anticoagulation due to risk of fall Recent stroke 6 to 8 weeks ago, patient is not sure about the etiology and stating she was told that she had stroke of base of her brain (sometimes she misses her target and her movements of arms are clumsy, however able to do finger-nose test appropriately during my evaluation in the ER) Will request ISRA, however does not have typical features of vasculitis No signs of mucosal ulcers NIH 1 We will request MRI of brain in the morning I will add dual antiplatelet therapy along high-dose statins Allow permissive hypertension PT evaluation Request TSH Cardiac diet Full code DVT prophylaxis Lovenox Attestations Medical Necessity Statement*: Anticipating discharge within 48 hours Time Spent in Patient Care: 16 - 35 minutes Coding Level of Care Code Acute Vp Communications for Timmy Foley Diagnoses Acute CVA (cerebrovascular accident) I63.9
[2021-01-19 20:27] VITALS: BP 131/40; PULSE 53; RESP 19; O2SAT 94
[2021-01-19 21:24] VITALS: BP 145/53; PULSE 94; RESP 18; O2SAT 94
--- NOTE | 2021-01-19 22:11 | ECG_ITS ---
[facility] ED Test Date: 2021-01-19 Pat Name: Carolina Barcenas Department: Room: Gender: Female Dry Color Mixer: : 1945 Requested By: Herman Guillory Order Number: [id number] Reading MD: Carolina Novoa M.D. Measurements Intervals [place] Rate: 54 P: 93 OR: 220 QRS: 19 QRSD: 110 T: -78 QT: 468 QTc: 448 Interpretive Statements SINUS BRADYCARDIA WITH SINUS ARRHYTHMIA WITH FIRST DEGREE AV BLOCK SEPTAL MYOCARDIAL INFARCTION [40+ ms Q WAVE IN V1/V2], PROBABLY OLD MODERATE T-WAVE ABNORMALITY, CONSIDER ANTEROLATERAL ISCHEMIA [-0.1+ mV T WAVE IN V3-V6] Compared to ECG 01/19/2021 16:08:14 T-wave abnormality now present Possible ischemia now present Myocardial infarct finding still present Electronically Signed On 01-29-2021 10:10:53 CDT by Carolina Novoa M.D. [id number]
[2021-01-19 22:30] LABS: Thyroid Stimulating Hormone 3.73 uIU/mL (0.27-4.20)
[2021-01-19 23:32] VITALS: BP 158/62; PULSE 51; RESP 19; O2SAT 95
[2021-01-20] VITALS (14 sets, daily range): BP systolic 137–203; BP diastolic 42–76; PULSE 53–64; RESP 12–22; TEMP 36.3–36.7; O2SAT 91–98; BMI 27.4
--- NOTE | 2021-01-20 04:59 | PC.NURSE ---
Dr. Funk notified of patient's blood pressure of 203/76. Orders received for IV labetalol IVP 10 mg once. Confirmed orders.
[2021-01-20] MEDS: labetalol 5 mg/mL SDV 20mL 10 MG IVP (05:28)
[2021-01-20] MEDS: enoxaparin 40 mg/0.4 mL Syringe SUBCUT (05:30)
[2021-01-20] MEDS: metoprolol tartrate 25 mg Tablet PO (08:48)
[2021-01-20] MEDS: atorvastatin 40 mg Tablet 80 MG PO (08:48)
[2021-01-20] MEDS: clopidogrel 75 mg Tablet PO (08:48)
[2021-01-20] MEDS: isosorbide mononitrate ER 60 mg Tablet PO (08:49)
[2021-01-20] MEDS: amiodarone 200 mg Tablet PO (08:49)
[2021-01-20] MEDS: aspirin 81 mg EC Tablet PO (08:49)
[2021-01-20] MEDS: lisinopril 20 mg Tablet PO (08:49)
[2021-01-20] MEDS: gabapentin 100 mg Capsule PO (08:49)
[2021-01-20 10:52] LABS: Basophils # 0.1 10^3/uL (0.0-0.1); Basophils % 0.5 %; Eosinophils # 0.1 10^3/uL (0.0-0.8); Eosinophils % 0.7 %; Hematocrit 34.8 % (37.0-47.0); Hemoglobin 11.4 g/dL (11.5-15.3); Lymphocytes # 2.7 10^3/uL (0.8-4.8); Lymphocytes % 28.4 %; Mean Corpuscular HGB Conc 32.8 g/dL (30.0-36.0); Mean Corpuscular Hemoglobin 30.8 pg (28.0-34.0); Mean Corpuscular Volume 94.1 fL (81-99); Mean Platelet Volume 10.5 fL (7.4-10.4); Monocytes # 0.8 10^3/uL (0.2-0.9); Monocytes % 8.9 %; Neutrophils # 5.78 10^3/uL (1.8-7.7); Neutrophils % 61.2 %; Nucleated Red Blood Cells % 0 %; Platelet Count 199 10^3/cmm (130-400); Red Cell Distribution Width 14.2 % (12.1-15.1); White Blood Count 9.5 10^3/uL (4.0-10.0)
[2021-01-20 11:06] LABS: Anion Gap 11.8 (5-19); Blood Urea Nitrogen 14 mg/dL (8-23); Calcium 8.7 mg/dL (8.5-10.5); Carbon Dioxide 24 mmol/L (22-29); Chloride 107 mmol/L (98-107); Creatinine Clr Calc Pharmacy 54.4958; Glucose 127 mg/dL (65-115); Osmolality Calculated 292 mOsm/kg (285-295); Sodium 140 mmol/L (136-145)
[2021-01-20 11:12] LABS: Potassium 2.8 mmol/L (3.5-5.1)
--- NOTE | 2021-01-20 13:31 | PM.PN ---
Subjective Subjective: Interval history: Carolina reports she is very weak and prone to fall. History and physical reviewed. She reports that she needs more support than she can be given at home. She does not believe she has any new neurologic deficits. She has some difficulty describing why she is currently off Eliquis but is sure she was taken off after hospitalization. Medications: Reviewed: Yes Vitals/I&O/Wt Last Vital Signs Temp 97.4 F L 01/20/21 12:00 Pulse 58 L 01/20/21 12:00 Resp 18 01/20/21 12:00 BP 144/59 01/20/21 12:00 Pulse Ox 97 01/20/21 12:00 01/19/21 01/20/21 01/20/21 22:59 06:59 14:59 Intake Total Balance Weight last 48 hrs Weight 70.307 kg Weight 70.307 kg Physical Exam Narrative: EXAM NARRATIVE: General exam no apparent distress Neck supple no lymphadenopathy or thyromegaly Cardiovascular regular rate and rhythm without murmur Lungs clear Abdomen is soft, positive bowel sounds Extremities no cyanosis clubbing or edema Neurologic: Mild weakness right side Data : 01/20/21 10:40 01/20/21 10:40 A&P Assessment and plan (1) Acute CVA (cerebrovascular accident): Most likely has subacute CVA. She has been hospitalized several times recently for this concern and even been to rehabilitation. From what I can discern she was discharged from rehab about 1 week ago and is failing to thrive at home. Patient believes she needs placement. We will try to get records from other hospitals. There is really no need to repeat echocardiogram, carotid duplex, other appropriate studies. MRI has been ordered and will be useful to determine if there has been an acute CVA. Continue aspirin and Plavix which has been initiated I believe she has been taken off Eliquis secondary to GI bleed but hopefully this will be further delineated in records. Physical therapy evaluation Status: Acute Additional A&P Information Weakness. Recheck electrolytes. Note that today she has rather severe hypokalemia. Will supplement IV and p.o. Check magnesium level. Hypertension. Continue medications Depression, continue medications History of atrial fibrillation. Currently sinus rhythm. Currently on amiodarone. Past history of diabetes. On no medication currently. Attestations Medical Necessity Statement*: Placed on observation secondary to concern of CVA. Awaiting MRI. May need placement. Coding Level of Care Code Acute Administrative Office Assistant for Timmy Foley Diagnoses Acute CVA (cerebrovascular accident) I63.9
[2021-01-20 14:18] LABS: Magnesium 1.6 mg/dL (1.7-2.3)
[2021-01-20] MEDS: potassium chloride ER 20 mEq Tablet 40 MEQ PO (16:20)
[2021-01-20] MEDS: lidocaine 1% 5 ML in potassium chloride premix 100 ML 25 ML IV ×2 (16:20→22:01)
[2021-01-20] MEDS: magnesium sulfate premix 2 GM/50 ML PIGGYBACK IV (20:26)
[2021-01-20] MEDS: citalopram 20 mg Tablet PO (22:04)
[2021-01-21] MEDS: HYDROcodone-acetaminophen 10-325 mg Tablet 1 TAB PO (00:42)
[2021-01-21 03:35] VITALS: BP 170/68; PULSE 62; RESP 16; TEMP 36.4; O2SAT 92
[2021-01-21] MEDS: enoxaparin 40 mg/0.4 mL Syringe SUBCUT (04:17)
--- NOTE | 2021-01-21 05:59 | PC.NURSE ---
Shift Note Frequent safety and comfort rounds continue. Orders and/or nursing care completed as indicated. Patient monitored for response to intervention and treatment(s). Patient rested comfortably (but no sleep) in bed throughout shift without major complaint. Patient did have some elevated blood pressures and hospitalist was notified. Patient currently resting in bed. Will continue to monitor.
[2021-01-21 06:05] LABS: Basophils # 0.1 10^3/uL (0.0-0.1); Basophils % 0.6 %; Eosinophils # 0.1 10^3/uL (0.0-0.8); Eosinophils % 1.4 %; Hematocrit 35.1 % (37.0-47.0); Hemoglobin 11.5 g/dL (11.5-15.3); Lymphocytes # 2.8 10^3/uL (0.8-4.8); Lymphocytes % 36.2 %; Mean Corpuscular HGB Conc 32.8 g/dL (30.0-36.0); Mean Corpuscular Hemoglobin 30.5 pg (28.0-34.0); Mean Corpuscular Volume 93.1 fL (81-99); Mean Platelet Volume 10.9 fL (7.4-10.4); Monocytes # 0.8 10^3/uL (0.2-0.9); Monocytes % 9.6 %; Neutrophils # 4.04 10^3/uL (1.8-7.7); Neutrophils % 52.1 %; Nucleated Red Blood Cells % 0 %; Platelet Count 196 10^3/cmm (130-400); Red Blood Count 3.77 10^6/uL (4.1-5.3); Red Cell Distribution Width 14.1 % (12.1-15.1); White Blood Count 7.8 10^3/uL (4.0-10.0)
[2021-01-21 06:17] LABS: Anion Gap 13.3 (5-19); Blood Urea Nitrogen 13 mg/dL (8-23); Calcium 8.5 mg/dL (8.5-10.5); Carbon Dioxide 24 mmol/L (22-29); Chloride 110 mmol/L (98-107); Creatinine Clr Calc Pharmacy 54.4958; Glucose 80 mg/dL (65-115); Osmolality Calculated 295 mOsm/kg (285-295); Potassium 4.3 mmol/L (3.5-5.1); Sodium 143 mmol/L (136-145)
[2021-01-21 08:00] VITALS: BP 192/75; PULSE 69; RESP 18; TEMP 36.4; O2SAT 96
[2021-01-21] MEDS: aspirin 81 mg EC Tablet PO (09:10)
[2021-01-21] MEDS: gabapentin 100 mg Capsule PO (09:10)
[2021-01-21] MEDS: lisinopril 20 mg Tablet PO (09:10)
[2021-01-21] MEDS: amiodarone 200 mg Tablet PO (09:10)
[2021-01-21] MEDS: clopidogrel 75 mg Tablet PO (09:10)
[2021-01-21] MEDS: metoprolol tartrate 25 mg Tablet PO ×2 (09:10→17:29)
[2021-01-21] MEDS: atorvastatin 40 mg Tablet 80 MG PO (09:10)
[2021-01-21] MEDS: isosorbide mononitrate ER 60 mg Tablet PO (09:10)
[2021-01-21 12:00] VITALS: BP 162/75; PULSE 62; RESP 17; TEMP 36.4; O2SAT 94
--- NOTE | 2021-01-21 12:00 | MR_ITS ---
WS: [id number] MRI BRAIN WITHOUT CONTRAST HISTORY: CVA COMPARISON: CT head 01/19/2021 TECHNIQUE: Diffusion imaging, multiplanar T1, T2 and FLAIR imaging obtained. No diffusion-weighted abnormality in the RIGHT temporal lobe. The ADC map and the T2 sequences are of increased signal involving the RIGHT temporal lobe. This corresponds to the area of decreased attenu ation on the recent CT. Most likely representing a prior infarct greater than 30 days old. There is extensive confluent periventricular FLAIR and T2 increased signal surrounding the ventricles and extending towards the vertex. There is additional chronic ischemic type changes in the cerebellu m bilaterally and also the LEFT emiliano. Prior lacunar infarct RIGHT thalamus. Ventricles are dilated on the basis of central and peripheral atrophy. There is moderate atrophy. No inferior displacement of cerebellar tonsils. There is an abrupt cut off of the RIGHT middle cerebral artery near the trifurcation. Paranasal sinuses: Clear. Mastoid air cells: Normal. Calvarium and scalp: Intact. MR/MR head wo con* [id number] IMPRESSION: 1. No acute infarct. Diffusion-weighted abnormalities normal. 2. RIGHT MCA territory infarct is greater than 30 days old but new since 2014. No hemorrhage. 3. Abrupt cut off of the RIGHT MCA at the trifurcation. This corresponds to th e RIGHT temporal lobe infarct distribution. 4. Severe confluent chronic white matter ischemic changes bilaterally.
[2021-01-21 13:26] LABS: SARS Covid-2 Antigen Negative (Negative)
--- NOTE | 2021-01-21 13:47 | P.PN_ITS ---
Subjective Subjective: Interval history: Carolina reports she feels about the same. Still weak. No headache. Medications: Reviewed: Yes Vitals/I&O/Wt Last Vital Signs Temp 97.6 F 01/21/21 12:00 Pulse 62 01/21/21 12:00 Resp 17 01/21/21 12:00 BP 162/75 01/21/21 12:00 Pulse Ox 94 01/21/21 12:00 01/20/21 01/21/21 01/21/21 22:59 06:59 14:59 Intake Total 345 / 585 585 / 1170 Output Total 550 / 550 Balance -205 / 35 585 / 620 Weight last 48 hrs Weight 70.307 kg Weight 70.307 kg Physical Exam Narrative: EXAM NARRATIVE: General exam no apparent distress Neck supple no lymphadenopathy or thyromegaly Cardiovascular regular rate and rhythm without murmur Lungs clear Abdomen is soft, positive bowel sounds Extremities no cyanosis clubbing or edema Neurologic: Mild weakness right side. No change in neurologic exam since admission Data : 01/21/21 05:02 01/21/21 05:02 A&P Assessment and plan (1) Acute CVA (cerebrovascular accident): Most likely has subacute CVA. She has been hospitalized several times recently for this concern and even been to rehabilitation. From what I can discern she was discharged from rehab about 1 week ago and is failing to thrive at home. Patient believes she needs placement. We will try to get records from other hospitals. There is really no need to repeat echocardiogram, carotid duplex, other appropriate studies. MRI has been ordered and will be useful to determine if there has been an acute CVA. This is still pending. Continue aspirin and Plavix which has been initiated I believe she has been taken off Eliquis secondary to GI bleed but hopefully this will be further delineated in records. Physical therapy evaluation Plan to discharge from hospital to skilled care. Status: Acute Additional A&P Information Weakness. Recheck electrolytes. Note that today she has rather severe hypokalemia. Will supplement IV and p.o. Check magnesium level. Hypertension. Continue medications. Electrolyte levels are normal today after supplementation. Depression, continue medications History of atrial fibrillation. Currently sinus rhythm. Currently on amiodarone. Past history of diabetes. On no medication currently. Lovenox for DVT prophylaxis No need for laboratory tomorrow. Attestations Medical Necessity Statement*: Needs continued hospitalization pending placement after investigation of possible subacute CVA. Coding Level of Care Code Acute Sound Truck Operator for g Fwd Diagnoses Acute CVA (cerebrovascular accident) I63.9
[2021-01-21 15:45] VITALS: BP 131/72; PULSE 60; RESP 18; TEMP 36.4; O2SAT 96
--- NOTE | 2021-01-21 16:56 | PC.NURSE ---
Shift Note Frequent safety and comfort rounds continue. Orders and/or nursing care completed as indicated. Pt taken to MRI at 1430, awaiting results. Dr. St notified of pt MRI time. Pt sat up in a chair this am for breakfast, up with two assist. Patient monitored for response to intervention and treatment(s). Education provided includes possible CVA and SNF rehab placement. Patient verbalized understanding. Will continue to monitor.
[2021-01-21 20:00] VITALS: BP 145/86; PULSE 59; RESP 16; TEMP 36.7; O2SAT 97
[2021-01-21] MEDS: citalopram 20 mg Tablet PO (21:21)
[2021-01-21 23:54] VITALS: BP 180/78; PULSE 55; RESP 14; TEMP 36.8; O2SAT 94
[2021-01-22 04:00] VITALS: BP 140/72; PULSE 60; RESP 16; TEMP 36.8; O2SAT 94
[2021-01-22] MEDS: enoxaparin 40 mg/0.4 mL Syringe SUBCUT (05:34)
--- NOTE | 2021-01-22 06:00 | PC.NURSE ---
Shift Note Frequent safety and comfort rounds continue. Orders and/or nursing care completed as indicated. Patient monitored for response to intervention and treatment(s). Education provided includes[using call light when needing to transfer to the bedside commode due to weakness]. Patient and/or medical office representative[verbalized understanding]. Unbeknownst to this RN, patient is non-ambulatory at home, however she was able to ambulate with 2 assist from bedside commode to chair without any issues.
[2021-01-22 07:57] VITALS: BP 161/74; PULSE 60; RESP 17; TEMP 36.7; O2SAT 96
--- NOTE | 2021-01-22 10:17 | PM.DCS ---
Discharge Providers Date of Admission: 01/21/21 16:13 Date of Discharge: January 22, 2021 Attending Provider at Admission: Clara Funk MD Attending Provider at Discharge: Nicolás St MD Primary Care Provider: Jairo Butterfield DO Diagnoses at Discharge Discharge Diagnosis (1) Acute CVA (cerebrovascular accident): Status: Acute Reason for Visit Reason for Visit: PAIN PEEING Hospital Course Hospital Course Carolina reports she is doing fine today. She is eager to go to skilled care. We again went through her medications and unfortunately I do not have any old records received on her yet. She states she is not on Eliquis but was on antiplatelet therapy to prevent stroke. She presented to the hospital, with global weakness. There was concern she may have had a new CVA. She reported she was not able to be cared for at home and was getting weaker there and having poor nutrition. She requested to go to a custodial facility. Plavix and aspirin were initiated. Eliquis was not initiated as patient reported she was taken off this for concerns of GI bleeding. Old records regarding this at previous recent hospitalizations we attempted to get but did not receive. She did have an MRI here demonstrating no acute CVA. She will transition to skilled care today January 22. She was discharged on Plavix, aspirin, statin. She does have history of atrial fibrillation but was in sinus rhythm her entire hospital stay here. She is maintained on amiodarone. Rapid Covid was tested for nursing facility placement on January 21 and was negative. Minor electrolyte abnormalities were present during her hospital stay which were corrected. Physical Exam Narrative: EXAM NARRATIVE: General exam no apparent distress Neck is supple no lymphadenopathy or thyromegaly Cardiovascular regular rate and rhythm without murmur Lungs clear Abdomen is soft with positive bowel sounds Extremities no cyanosis clubbing or edema Neurologic exam: Mild weakness right side, unchanged from admission Discharge Data Data Completed and Pending: Completed Studies During Hospitalization Category Date Time Status CT head wo con* 7 0450 Stat Cat Scan 01/19/21 16:07 Completed MR head wo con* 7 [id number] Routine MRI 01/21/21 12:00 Completed Labs from last 24 hours 01/21/21 12:36 SARS-CoV-2 Ag (Rap id) Negative Vitals: Last Vital Signs Temp 98.0 F 01/22/21 07:57 Pulse 60 01/22/21 07:57 Resp 17 01/22/21 07:57 BP 161/74 01/22/21 07:57 Pulse Ox 96 01/22/21 07:57 Discharge Plan Discharge Patient Disposition: Xfer SNF Condition: Stable Prescriptions: New aspirin 81 mg Tablet,Delayed Release (Dr/Ec) 81 mg PO DAILY Qty: 30 RF: 0 clopidogrel 75 mg Tablet 75 mg PO DAILY Qty: 30 RF: 0 atorvastatin 40 mg Tablet 80 mg PO DAILY Qty: 30 RF: 0 Continued amiodarone 200 mg tablet 200 mg PO DAILY RF: 0 lisinopril 20 mg tablet 20 mg PO DAILY RF: 0 isosorbide mononitrate 60 mg tablet extended release 24 hr 60 mg PO DAILY RF: 0 omeprazole 10 mg capsule,delayed release(DR/EC) 10 mg PO DAILY RF: 0 metoprolol tartrate 50 mg PO DAILY RF: 0 Laura 10-325 mg Tablet 1 tab PO Q4H PRN (Reason: Pain) RF: 0 Celexa 20 mg Tablet 20 mg PO BEDTIME RF: 0 gabapentin 100 mg Capsule 100 mg PO DAILY RF: 0 Discontinued Eliquis 5 mg tablet 5 mg PO BID RF: 0 clonidine HCl 0.1 mg Tablet 0.1 mg PO PRN RF: 0 Macrobid 100 mg Capsule 100 mg PO Q12H RF: 0 Discharge Orders: Discharge Order (Routine); Ordered 01/22/21 Ordered By: Nicolás St Referrals: Jairo Butterfield DO [Primary Care Provider] - 4-7 days Discharge Diet: Cardiac Activity Restrictions/Additional Instructions: Follow-up with primary care provider 3 to 5 days at custodial facility [facility] in 1 week Discharge Attestations Time Spent in Discharge Care*: greater than 30 min Quality Metrics Clinical Quality Measures During this hospital stay, did patient experience: None Coding Level of Care Code Acute Chg FW DC note Diagnoses Acute CVA (cerebrovascular accident) I63.9
--- NOTE | 2021-01-22 10:28 | PC.CHAP ---
Pastoral Care Encounter/Spiritual Assessment Type of Contact [] Declined postdoctoral fellow visit [] Patient/Family/Request visit [] Outpatient visit [] Follow-up visit [] Physician referral [] Code/Alert [x] Routine visit [] Staff referral [] Actively dying [] Patient sleeping [] Family support [] [] Out of room [] Palliative care [] [x] Receiving care in room [] Pre-surgical visit [x] Trauma [x] Long length of stay [] ICU visit [] Other: Relational/Emotional Strength [x] Patient feels connected with others/family/visitors/staff [] Distress [] Loneliness/isolation [] Abandonment Spirituality of Patient [x] Person of Dawn [] Attends Adventist of their Dawn [x] Believes in Prayer [] Reads Bible or Confucianist materials [] There are Spiritual issues to be addressed Spares Scheduler Interventions [x] Prayer [x] Active listening [x] Non-anxious presence [x] Spiritual/emotional support [] Crisis/trauma care [x] Spiritual counseling [] Bereavement support [] Provided bereavement packet [] Provided Bible/devotional materials [] Provided toy/stuffed animal, coloring book to patient or family member [] Provided Communion [] Anointing/[place] [] Salvation [x] Completed spiritual assessment [] Other: Impact on Illness or Injury [] Angry [] Fearful [x] Anxious [] Often cries [] Exhaustion [x] Unable to work [] Unable to attend nondenominational [] Unable to walk/stand [] Unable to read [] Unable to drive [] Unable to eat/drink [] Unable to sleep [] Unable to be with family [] Patient intubated [] Other: Summary not feeling well doesn't know about her health or what needs to be done at this [place] may have to go to residential junito check with doctor later has a negative attitude about what needs to be done Time spent with patient 10 mins
[2021-01-22] MEDS: metoprolol tartrate 25 mg Tablet PO (11:32)
[2021-01-22] MEDS: atorvastatin 40 mg Tablet 80 MG PO (11:32)
[2021-01-22] MEDS: clopidogrel 75 mg Tablet PO (11:32)
[2021-01-22] MEDS: amiodarone 200 mg Tablet PO (11:32)
[2021-01-22] MEDS: aspirin 81 mg EC Tablet PO (11:32)
[2021-01-22] MEDS: isosorbide mononitrate ER 60 mg Tablet PO (11:32)
[2021-01-22] MEDS: lisinopril 20 mg Tablet PO (11:32)
[2021-01-22] MEDS: gabapentin 100 mg Capsule PO (11:32)
--- NOTE | 2021-01-22 12:15 | PC.NURSE ---
PT HAS DONE WELL FOR ME TODAY. WE HAVE GOTTEN UP TO THE BEDSIDE COMMODE A COUPLE OF TIMES AND PT DID GOOD WITH MIN-MOD ASSIST FROM ME. PT HAS NOT HAD ANY COMPLAINTS OF PAIN. PT WILL DISCHARGE TODAY PER MD. IV'S WERE REMOVED FROM LEFT HAND AND RIGHT AC SPACE. PT TOLERATED WELL. CATHETER TIPS INTACT. PT WAS WHEELED OUT TO EMPLOYEE OF [employer]. PT SAFELY DISCHARGED FROM THE HOSPITAL AT 1155.
--- NOTE | 2021-01-22 12:37 | PC.NURSE ---
REPORT CALLED TO CONSTANTIN PRIETO. ALL QUESTIONS ANSWERED.
[2021-01-22 12:42] VITALS: BP 161/74; PULSE 60; RESP 17; TEMP 36.7; O2SAT 96
== END 2021-01-22 11:55 | disposition skilled nursing facility (03) | DRG 57 ==
LOC: ER 19:41 → ER IP 01-20 05:16 → MEDSURG 01-20 11:33
PROVIDERS: Family Medicine; Physician Assistant; Admitting Provider Internal Medicine; Emergency Provider Emergency Medicine; PCP Internal Medicine; Visit Provider Internal Medicine
DX: I69.351 Hemiplegia and hemiparesis following cerebral infarction affecting right dominant side (principal); I48.91 Unspecified atrial fibrillation; W06.XXXA Fall from bed, initial encounter; I25.10 Atherosclerotic heart disease of native coronary artery without angina pectoris; E11.9 Type 2 diabetes mellitus without complications; I10 Essential (primary) hypertension; E87.6 Hypokalemia; F32.9 Major depressive disorder, single episode, unspecified; Z79.891 Long term (current) use of opiate analgesic
CPT/HCPCS: 36415; 36416; 70450; 70551; 80048; 80053; 81003; 82550; 82962; 83605; 83690; 83735; 84443; 84484; 85025; 87426; 93005; 96361; 96372; 96374; 97110; 97116; 97161; 97530; 99285; G0378; J1650; J3475; J3480; J3490; J7030

== ENCOUNTER 2021-06-04 18:10 | Observation (INO) | payer MEDICARE, OTHER, SELFPAY ==
--- NOTE | 2021-06-04 18:12 | CTR_ITS ---
PROCEDURE INFORMATION: Exam: CT Abdomen And Pelvis With Contrast Exam date and time: 06/04/2021 6:12 PM Age: 76 years old Clinical indication: Constipation; Abdominal pain; Prior surgery; Surgery type: Hyst, hemorroidectomy; Additional info: Eval for infection TECHNIQUE: Imaging protocol: Computed tomography of the abdomen and pelvis with contrast. Radiation optimization: All CT scans at this facility use at least one of these dose optimization techniques: automated exposure control; mA and/or kV adjustment per patient size (includes targeted exams where dose is matched to clinical indication); or iterative reconstruction. Contrast material: OMNI 300; Contrast volume: 95 ml; Contrast route: INTRAVENOUS (IV); COMPARISON: No relevant prior studies available. RADIATION DOSE METRICS: Total DLP (mGy-cm): 1294.76 FINDINGS: Lungs: Emphysematous changes. Bibasilar atelectasis. Liver: Normal. No mass. Gallbladder and bile ducts: Normal. No calcified stones. No ductal dilation. Pancreas: Normal. No ductal dilation. Spleen: Normal. No splenomegaly. Adrenal glands: Normal. No mass. Kidneys and ureters: Normal. No hydronephrosis. Stomach and bowel: Mild distal sigmoid and rectal wall thickening may reflect a mild colitis in the appropriate clinical setting. Constipation. Appendix: No evidence of appendicitis. Intraperitoneal space: Unremarkable. No free air. No significant fluid collection. Vasculature: Unremarkable. No abdominal aortic aneurysm. Lymph nodes: Unremarkable. No enlarged lymph nodes. Urinary bladder: Unremarkable as visualized. Reproductive: Unremarkable as visualized. Bones/joints: Unremarkable. No acute fracture. Soft tissues: Left lower lumbar 3.1 cm fluid collection in the subcutaneous fat, perhaps reflecting an infectious process, please correlate clinically. CT/CT abdomen pelvis w con* [id number] IMPRESSION: 1. Mild distal sigmoid and rectal wall thickening may reflect a mild colitis in the appropriate clinical setting. 2. Emphysematous changes. 3. Bibasilar atelectasis. 4. Constipation. 5. Left lower lumbar 3.1 cm fluid collection in the subcutaneous fat, perhaps reflecting an infectious process, please correlate clinically.
[2021-06-04 18:21] VITALS: BP 152/62; PULSE 67; RESP 18; TEMP 36.6; O2SAT 95; BMI 26.5
--- NOTE | 2021-06-04 18:54 | W.ED.GENADLT ---
Documented by User: Aria Dejesus MD 06/06/21 22:32 HPI - General Adult General: Chief complaint: Abdominal Pain Stated complaint: BOWEL IMPACTION Time Seen by Provider: 06/04/21 18:13 History of Present Illness: HPI narrative: Patient is a 76-year-old female with a history of atrial fibrillation on amiodarone, CAD on Plavix, CVA who presents the emergency room for concerns of decreased stooling x1 week. Patient tells me that she has had difficulty stooling for the last week. She has tried [id number]-[id number] MiraLAX, prune juice and milk of magnesia with minimal improvement in symptoms. Patient says that she has had decreased flatus. Patient this morning was sitting on the bathroom when she noticed her blood primary blood. Patient denies any melena hematochezia. Denies any nausea/vomiting, abdominal distention, abdominal pain, chest pain, shortness breath, palpitation, complaints, vaginal discharge or other complaints today. Onset: 1 week ago Duration:1 week Location:home Severity:moderate Review of Systems Narrative: Constitutional: No fever, no chills. HEENT: No vision changes CV: No chest pain, no palpitations PULM: no cough, no dyspnea. GI: No abdominal pain, no N/V/D. +decreased stooling : No dysuria MSKEL: No muscle pain SKIN: No new rashes, no lesions. NEURO: No headache, no focal weakness. HEME: No visible bruises PSYCH: Normal mood PFSH ED PFSH: Medical History Acute CVA (cerebrovascular accident) Afib CAD (coronary artery disease) CVA (cerebral vascular accident) Diabetes GI bleed TIA (transient ischemic attack) Ulcerative (chronic) enterocolitis Surgical History Hx of CABG Family History Other CAD (coronary artery disease) Stroke Social History Smoking and tobacco status: never smoked Alcohol intake: never Housing: House Physical Exam Narrative: EXAM NARRATIVE: Head: Atraumatic Eyes: PERRL, conjunctiva without injection ENT: Mucous membrane moist NECK: Supple, ROM intact LUNGS: LCTAB, no crackles/rhonchi CV: RRR ABDOMEN: Soft, no focal TTP. NO guarding rebound, guarding, rigidity. No CVA tenderness to percussion. Neg Cordova/Neg McBurney's point tenderness, no suprabupic tenderness to palpation. EXTREMITY: Normal ROM SKIN: No rash or erythema NEURO: Awake and alert, no focal motor deficits PSYCH: Normal mood and affect Course Vital Signs: Vital signs: Vital Signs Temperature 98.7 F 06/06/21 20:00 Pulse Rate 67 06/06/21 20:00 Respiratory Rate 19 H 06/06/21 20:00 Blood Pressure 161/71 06/06/21 20:00 Pulse Oximetry 96 06/06/21 20:00 MDM - General Adult MDM Narrative: Medical decision making narrative: Patient is a 76-year-old female presenting to the emergency room complaints of decreased swelling x1 week. On exam, patient is afebrile, hemodynamically stable. Patient has mild paralumbar area tenderness CT abdomen pelvis showed subcuq lumbar collection, will may need IR guided drainage Patient is also noted to have mild colitis with stool burden concerning for stercoral colitis. WBC of 15K. S/p vancomycin and cefepime. Case signed out to Dr. Snider pending MRI and decision Lab Data: Labs: Lab Results 06/04/21 06/04/21 06/04/21 19:31 19:31 23:53 WBC 15.4 10^3/uL H 10 ^3/uL (4.0-10.0) RBC 4.56 10^6/uL 10^6 /uL (4.1-5.3) Hgb 14.3 g/dL g/dL (11.5-15.3) Hct 42.3 % % (37.0-47.0) MCV 92.8 fl fl (81-99) MCH 31.4 pg pg (28.0-34.0) MCHC 33.8 g/dL g/dL (30.0-36.0) RDW 13.3 % % (12.1-15.1) Plt Count 259 10^3/cmm 10^3 /cmm (130-400) MPV 9.6 fL fL (7.4-10.4) Neut % (Auto) 89.5 % % Lymph % (Auto) 6.1 % % [place] % (Auto) 3.8 % % Eos % (Auto) 0.0 % % Baso % (Auto) 0.3 % % Neut # (Auto) 13.73 10^3/uL H 1 0^3/uL (1.8-7.7) Lymph # (Auto) 0.9 10^3/uL 10^3/ uL (0.8-4.8) [place] # (Auto) 0.6 10^3/uL 10^3/ uL (0.2-0.9) Eos # (Auto) 0.0 10^3/uL 10^3/ uL (0.0-0.8) Baso # (Auto) 0.1 10^3/uL 10^3/ uL (0.0-0.1) Nucleated RBC % (a uto) 0 % % Nucleated RBCs # 0.0 /100WBC /100W BC Sodium 138 mmol/L mmol/L (136-145) Potassium 4.5 mmol/L mmol/L (3.5-5.1) Chloride 99 mmol/L mmol/L (98-107) Carbon Dioxide 23 mmol/L mmol/L (22-29) Anion Gap 20.5 H (5-19) BUN 21 mg/dL mg/dL (8-23) Creatinine 0.8 mg/dL mg/dL (0.5-0.9) GFR Calculation Not Reportable Glucose 108 mg/dL mg/dL (65-115) Calculated Osmolal ity 290 mOsm/kg mOsm/ kg (285-295) Calcium 8.8 mg/dL mg/dL (8.5-10.5) Total Bilirubin 0.4 mg/dL mg/dL (0.15-1.2) AST 54 U/L H U/L (0-32) ALT 68 U/L H U/L (0-33) Alkaline Phosphata se 123 IU/L H IU/L (35-105) Total Protein 7.7 g/dL g/dL (6.6-8.7) Albumin 4.3 g/dL g/dL (3.5-5.2) Globulin 3.4 g/dL g/dL (1.3-4.6) Lipase 22 U/L U/L (13-60) Urine Color Yellow (Yellow) Urine Appearance Clear (CLEAR) Urine pH 5 (5-7) Ur Specific Gravit y 1.005 (1.005-1.030) Urine Protein Neg (Negative) Urine Glucose (UA) Norm (Normal) Urine Ketones Negative (Negative) Urine Blood 2+ H (Negative) Urine Nitrate Negative (Negative) Urine Bilirubin Neg (Negative) Urine Urobilinogen Neg mg/dL mg/dL (Negative) Ur Leukocyte Ching ase Negative (Negative) Urine RBC Rare /hpf /hpf (0-2) Urine WBC 0-4 /hpf H /hpf (0-5) Ur Squamous Epith Cells 0-4 /hpf H /hpf (0-5) Amorphous Sediment Not Reportable Urine Bacteria None /hpf /hpf (NONE) Imaging Data^: Other Imaging: Radiologist's impression: [email or web address] [id number] Scan ReportSigned Patient: Carolina Barcenas AUnit #: [id number]: [id number]#:[id number]/Sex: 76 / FADM Date: 06/04/21Loc: ERRoom/Bed:Attending Dr: Ordering Provider/Ordering MD: Aria Dejesus MD Date of Service: 06/04/21 Procedure(s): CT abdomen pelvis w con* [id number] Accession Number(s): [id number] Report Number: [id number] PROCEDURE INFORMATION: Exam: CT Abdomen And Pelvis With Contrast Exam date and time: 06/04/2021 6:12 PM Age: 76 years old Clinical indication: Constipation; Abdominal pain; Prior surgery; Surgery type: Hyst, hemorroidectomy; Additional info: Eval for infection TECHNIQUE: Imaging protocol: Computed tomography of the abdomen and pelvis with contrast. Radiation optimization: All CT scans at this facility use at least one of these dose optimization techniques: automated exposure control; mA and/or kV adjustment per patient size (includes targeted exams where dose is matched to clinical indication); or iterative reconstruction. Contrast material: OMNI 300; Contrast volume: 95 ml; Contrast route: INTRAVENOUS (IV); COMPARISON: No relevant prior studies available. RADIATION DOSE METRICS: Total DLP (mGy-cm): 1294.76 FINDINGS: Lungs: Emphysematous changes. Bibasilar atelectasis. Liver: Normal. No mass. Gallbladder and bile ducts: Normal. No calcified stones. No ductal dilation. Pancreas: Normal. No ductal dilation. Spleen: Normal. No splenomegaly. Adrenal glands: Normal. No mass. Kidneys and ureters: Normal. No hydronephrosis. Stomach and bowel: Mild distal sigmoid and rectal wall thickening may reflect a mild colitis in the appropriate clinical setting. Constipation. Appendix: No evidence of appendicitis. Intraperitoneal space: Unremarkable. No free air. No significant fluid collection. Vasculature: Unremarkable. No abdominal aortic aneurysm. Lymph nodes: Unremarkable. No enlarged lymph nodes. Urinary bladder: Unremarkable as visualized. Reproductive: Unremarkable as visualized. Bones/joints: Unremarkable. No acute fracture. Soft tissues: Left lower lumbar 3.1 cm fluid collection in the subcutaneous fat, perhaps reflecting an infectious process, please correlate clinically. CT/CT abdomen pelvis w con* [id number] IMPRESSION: 1. Mild distal sigmoid and rectal wall thickening may reflect a mild colitis in the appropriate clinical setting. 2. Emphysematous changes. 3. Bibasilar atelectasis. 4. Constipation. 5. Left lower lumbar 3.1 cm fluid collection in the subcutaneous fat, perhaps reflecting an infectious process, please correlate clinically. Dictated By:Jose Juan Freitas MDSigned By:Jose Juan Freitas MDSigned Date/Time:06/04/213DD/ 11 Discharge Plan Discharge Patient Disposition: Admitted As Inpatient Admit Provider: Dominique Morales Clinical Impression: Constipation, Colitis Condition: Stable Discharge Diet: Advance as tolerated Discharge Activity: Resume usual activity Coding Level of Care Code ED Fiberglass Ski Maker for Chg Fwd Documented by User: Kevin Snider MD 06/05/21 00:34 HPI - General Adult General: Chief complaint: Abdominal Pain Stated complaint: BOWEL IMPACTION Time Seen by Provider: 06/04/21 18:13 PFSH ED PFSH: Medical History Acute CVA (cerebrovascular accident) Afib CAD (coronary artery disease) CVA (cerebral vascular accident) Diabetes GI bleed TIA (transient ischemic attack) Ulcerative (chronic) enterocolitis Surgical History Hx of CABG Family History Other CAD (coronary artery disease) Stroke Social History Smoking and tobacco status: never smoked Alcohol intake: never Housing: House Course Vital Signs: Vital signs: Vital Signs Temperature 98.7 F 06/06/21 20:00 Pulse Rate 67 06/06/21 20:00 Respiratory Rate 19 H 06/06/21 20:00 Blood Pressure 161/71 06/06/21 20:00 Pulse Oximetry 96 06/06/21 20:00 MDM - General Adult MDM Narrative: Medical decision making narrative: Patient signed out to me pending MRI MRI here shows no signs of epidural abscess spoke to hospitalist will admit for colitis and elevated white count per Dr. Dejesus. Patient's been stable here patient given IV antibiotics spoke to hospitalist who is excepting. Lab Data: Labs: Lab Results 06/04/21 06/04/21 06/04/21 19:31 19:31 23:53 WBC 15.4 10^3/uL H 10 ^3/uL (4.0-10.0) RBC 4.56 10^6/uL 10^6 /uL (4.1-5.3) Hgb 14.3 g/dL g/dL (11.5-15.3) Hct 42.3 % % (37.0-47.0) MCV 92.8 fl fl (81-99) MCH 31.4 pg pg (28.0-34.0) MCHC 33.8 g/dL g/dL (30.0-36.0) RDW 13.3 % % (12.1-15.1) Plt Count 259 10^3/cmm 10^3 /cmm (130-400) MPV 9.6 fL fL (7.4-10.4) Neut % (Auto) 89.5 % % Lymph % (Auto) 6.1 % % [place] % (Auto) 3.8 % % Eos % (Auto) 0.0 % % Baso % (Auto) 0.3 % % Neut # (Auto) 13.73 10^3/uL H 1 0^3/uL (1.8-7.7) Lymph # (Auto) 0.9 10^3/uL 10^3/ uL (0.8-4.8) [place] # (Auto) 0.6 10^3/uL 10^3/ uL (0.2-0.9) Eos # (Auto) 0.0 10^3/uL 10^3/ uL (0.0-0.8) Baso # (Auto) 0.1 10^3/uL 10^3/ uL (0.0-0.1) Nucleated RBC % (a uto) 0 % % Nucleated RBCs # 0.0 /100WBC /100W BC Sodium 138 mmol/L mmol/L (136-145) Potassium 4.5 mmol/L mmol/L (3.5-5.1) Chloride 99 mmol/L mmol/L (98-107) Carbon Dioxide 23 mmol/L mmol/L (22-29) Anion Gap 20.5 H (5-19) BUN 21 mg/dL mg/dL (8-23) Creatinine 0.8 mg/dL mg/dL (0.5-0.9) GFR Calculation Not Reportable Glucose 108 mg/dL mg/dL (65-115) Calculated Osmolal ity 290 mOsm/kg mOsm/ kg (285-295) Calcium 8.8 mg/dL mg/dL (8.5-10.5) Total Bilirubin 0.4 mg/dL mg/dL (0.15-1.2) AST 54 U/L H U/L (0-32) ALT 68 U/L H U/L (0-33) Alkaline Phosphata se 123 IU/L H IU/L (35-105) Total Protein 7.7 g/dL g/dL (6.6-8.7) Albumin 4.3 g/dL g/dL (3.5-5.2) Globulin 3.4 g/dL g/dL (1.3-4.6) Lipase 22 U/L U/L (13-60) Urine Color Yellow (Yellow) Urine Appearance Clear (CLEAR) Urine pH 5 (5-7) Ur Specific Gravit y 1.005 (1.005-1.030) Urine Protein Neg (Negative) Urine Glucose (UA) Norm (Normal) Urine Ketones Negative (Negative) Urine Blood 2+ H (Negative) Urine Nitrate Negative (Negative) Urine Bilirubin Neg (Negative) Urine Urobilinogen Neg mg/dL mg/dL (Negative) Ur Leukocyte Ching ase Negative (Negative) Urine RBC Rare /hpf /hpf (0-2) Urine WBC 0-4 /hpf H /hpf (0-5) Ur Squamous Epith Cells 0-4 /hpf H /hpf (0-5) Amorphous Sediment Not Reportable Urine Bacteria None /hpf /hpf (NONE) Discharge Plan Discharge Patient Disposition: Admitted As Inpatient Admit Provider: Dominique Morales Clinical Impression: Constipation, Colitis Condition: Stable Discharge Diet: Advance as tolerated Discharge Activity: Resume usual activity Coding Level of Care Code ED Fiberglass Ski Maker for Timmy Foley
[2021-06-04 19:41] LABS: Basophils # 0.1 10^3/uL (0.0-0.1); Basophils % 0.3 %; Hematocrit 42.3 % (37.0-47.0); Hemoglobin 14.3 g/dL (11.5-15.3); Lymphocytes # 0.9 10^3/uL (0.8-4.8); Lymphocytes % 6.1 %; Mean Corpuscular HGB Conc 33.8 g/dL (30.0-36.0); Mean Corpuscular Hemoglobin 31.4 pg (28.0-34.0); Mean Corpuscular Volume 92.8 fl (81-99); Mean Platelet Volume 9.6 fL (7.4-10.4); Monocytes # 0.6 10^3/uL (0.2-0.9); Monocytes % 3.8 %; Neutrophils # 13.73 10^3/uL (1.8-7.7); Neutrophils % 89.5 %; Nucleated Red Blood Cells % 0 %; Platelet Count 259 10^3/cmm (130-400); Red Blood Count 4.56 10^6/uL (4.1-5.3); Red Cell Distribution Width 13.3 % (12.1-15.1); White Blood Count 15.4 10^3/uL (4.0-10.0)
[2021-06-04 19:59] LABS: Alanine Aminotransferase 68 U/L (0-33); Albumin Level 4.3 g/dL (3.5-5.2); Alkaline Phosphatase 123 IU/L (35-105); Anion Gap 20.5 (5-19); Aspartate Amino Transferase 54 U/L (0-32); Blood Urea Nitrogen 21 mg/dL (8-23); Calcium 8.8 mg/dL (8.5-10.5); Carbon Dioxide 23 mmol/L (22-29); Chloride 99 mmol/L (98-107); Globulin 3.4 g/dL (1.3-4.6); Glucose 108 mg/dL (65-115); Lipase 22 U/L (13-60); Osmolality Calculated 290 mOsm/kg (285-295); Potassium 4.5 mmol/L (3.5-5.1); Sodium 138 mmol/L (136-145); Total Bilirubin 0.4 mg/dL (0.15-1.2); Total Protein 7.7 g/dL (6.6-8.7)
[2021-06-04] MEDS: iohexol 300 mg/mL 100 mL Btl IV (20:24)
--- NOTE | 2021-06-04 21:16 | MRR_ITS ---
PROCEDURE INFORMATION: Exam: MR Lumbar Spine Without and With Contrast Exam date and time: 06/04/2021 9:16 PM Age: 76 years old Clinical indication: Other: Abdominal pain; Additional info: Epidural abscess TECHNIQUE: Imaging protocol: Multiplanar magnetic resonance images of the lumbar spine without and with intravenous contrast. Contrast material: PROHANCE; Contrast volume: 15 ml; Contrast route: INTRAVENOUS (IV); COMPARISON: CT abdomen pelvis w con* [id number] 06/04/2021 8:20 PM FINDINGS: Vertebrae: The vertebral body alignment and stature is normal. No fracture or subluxation. No abnormal bone enhancement. Spinal cord: Normal signal. No cord compression. L1-L2: No significant disc disease. No significant spinal canal stenosis. No neural foraminal stenosis. L2-L3: Trace disc bulge. Hypertrophic facets. Moderate left bony foraminal stenosis. Mild right foraminal stenosis. Mild central canal stenosis. L3-L4: Trace disc bulge. Hypertrophic degenerative facets. Mild bilateral foraminal stenosis. Mild central canal stenosis. L4-L5: Mild disc bulge. Hypertrophic degenerative facets. Severe left and mild right foraminal stenosis. Severe central canal stenosis. L5-S1: Mild disc bulge. Degenerative facets. Moderate left and mild right foraminal stenosis. Mild central canal stenosis. Facets are intact with hypertrophic degenerative changes at L3-L4 through L5-S1. Soft tissues: Visualized only on the axial sequences, there is a partially visualized oval fluid collection in the subcutaneous fat of the lower left flank, upper buttock region with surrounding enhancement. This corresponds to the CT finding and measures approximately 3.1 cm. Subcutaneous fat edema in the mid posterior lumbar region from L1 through L4 without peripheral enhancement. MR/MR lumbar spine wo/w con [id number] IMPRESSION: 1. No evidence for epidural abscess or discitis osteomyelitis. 2. 3.1 cm partially visualized fluid collection with surrounding enhancement in the subcutaneous fat of the inferior left flank/upper buttock region. This corresponds to the finding on the CT study and is suspicious for a subcutaneous abscess.
[2021-06-04] MEDS: cefepime 1,000 MG in sodium chloride 0.9% (plus) 50 ML 100 MG IV (22:01)
[2021-06-04] MEDS: morphine 4 mg/mL SDV 1 mL 2 MG IVP (22:19)
[2021-06-04] MEDS: lactulose oral liq 20 gm/30 mL UDC 30 GM PO (23:48)
[2021-06-04] MEDS: vancomycin 1,000 MG in sodium chloride 0.9% 250 ML 250 MG IV (23:58)
[2021-06-05] VITALS (11 sets, daily range): BP systolic 135–177; BP diastolic 67–78; PULSE 62–78; RESP 16–19; TEMP 36.7–37.2; O2SAT 91–99; BMI 22.8
[2021-06-05 00:51] LABS: Add Urine Microscopic? YES; Bilirubin Urine Neg (Negative); Blood Urine 2+ (Negative); Glucose Urine UA Norm (Normal); Ketones Urine Negative (Negative); Leukocyte Esterase Urine Negative (Negative); Nitrate Urine Negative (Negative); Protein Urine Neg (Negative); Specific Gravity, Urine 1.005 (1.005-1.030); Urine Appearance Clear (CLEAR); Urine Color Yellow (Yellow); Urobilinogen Urine Neg (Negative); pH Urine 5 (5-7)
[2021-06-05 00:53] LABS: Add Urine Culture? No; RBC Urine RARE /hpf (0-2); Squamous Epithelial Cell Urine 0-4 /hpf (0-5); WBC Urine 0-4 /hpf (0-5)
[2021-06-05] MEDS: morphine 4 mg/mL SDV 1 mL 2 MG IVP (02:14)
[2021-06-05] MEDS: magnesium citrate Btl 296 mL 150 ML PO (02:15)
[2021-06-05] MEDS: sodium chloride 0.9% 1,000 ML 50 ML IV (02:15)
--- NOTE | 2021-06-05 02:44 | PM.HP ---
Providers/Chief Complaint Admitting Physician: Dominique Morales MD Chief Complaint: BOWEL IMPACTION History of Present Illness Carolina Barcenas is a 76 year old female who has a history of multiple strokes in the past, history of atrial fibrillation not a candidate of anticoagulation due to history of recurrent falls and hematomas, presented today to the emergency room with chief complains of rectal bleeding and constipation. Patient states that she has been having difficulty having a bowel movement over the last 5 to 6 days, she has started tried multiple laxatives at home including prune juice, Metamucil without any significant relief. She is passing flatus, however feels this is less than usual. She she tried to suppositories yesterday without any success. This morning she noted that she had blood streaking on toilet paper 3 times which prompted her to present to the emergency room. She does have a past medical history of hemorrhoids. Last colonoscopy was 2 to 3 years ago, patient does not recall exact date, however states that this was reportedly normal. Has a past history of colitis additionally. No history of diverticulitis. She rates 3 out of 10 mild abdominal pain around the periumbilical area. No nausea or vomiting. Appetite is mildly reduced today. No history of hematemesis. No fever. 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 Incidentally noted was a left lower lumbar 3.1 cm fluid collection in the subcutaneous fat. Thereafter she underwent a lumbar MRI due to concern for a possible epidural abscess which was negative for the same however demonstrated again to 3.1 cm fluid collection. Per history patient states she suffered a fall approximately a year ago and had a large hematoma in that area which took several months to resolve. It was not amenable to drainage. Patient denies any pain in the area at this time. No fever, no overlying skin changes. Review of Systems General: Reports: 10 or more systems reviewed and unremarkable except in HPI and below Const: Denies: fever(s), chills or body aches Eyes: Denies: change in vision, blurry vision or photophobia ENMT: Denies: throat pain, enlarged tonsils, odynophagia or nasal congestion Card: Denies: chest pain, palpitations, irregular heart rhythm, edema, swelling of feet/ankles, lightheadedness, pre-syncope, dyspnea on exertion or orthopnea Resp: Denies: dyspnea, productive cough, non-productive cough, wheezing, stridor, pain on inspiration, change in phlegm color, hemoptysis or chest congestion GI: Reports: abdominal pain; Denies: nausea, vomiting, hematemesis, coffee ground emesis, dysphagia, heartburn, diarrhea, constipation, GI cramping, change in stool character, hematochezia or melena : Denies: flank pain, difficulty voiding, dysuria, urinary frequency, urinary urgency, urinary hesitancy or hematuria Musc: Denies: neck pain, back pain, extremity pain, joint swelling, joint warmth or deformity Neuro: Denies: headache(s), numbness in extremities, weakness in extremities, sensory changes, difficulty walking, frequent falls, dizziness, vertigo, behavioral changes, Slurred speech present or seizure-like activity Psych: Denies: anxiety, depression, suicidal ideation or homicidal ideation Endo: Denies: polyuria, polydipsia, tired all the time, cold intolerance or hot flashes Raymond/Lymph: Denies: easy bruising or easy bleeding Medications/Allergies Home Medications Medication Instructions Recorded Confirmed Last Taken Type Celexa 20 mg PO BEDTIME 01/19/21 01/19/21 01/18/21 History amiodarone 200 mg PO DAILY 01/19/21 01/19/21 01/19/21 History gabapentin 100 mg PO DAILY 01/19/21 01/19/21 01/19/21 History hydrocodone-acetaminophen 1 tab PO Q4H PRN 01/19/21 01/19/21 Unknown History isosorbide mononitrate 60 mg PO DAILY 01/19/21 01/19/21 01/19/21 History lisinopril 20 mg PO DAILY 01/19/21 01/19/21 01/19/21 History metoprolol tartrate 50 mg PO DAILY 01/19/21 01/19/21 01/19/21 History omeprazole 10 mg PO DAILY 01/19/21 01/19/21 01/19/21 History aspirin 81 mg PO DAILY #30 tab 01/22/21 Unknown Rx atorvastatin 80 mg PO DAILY #30 tab 01/22/21 Unknown Rx clopidogrel 75 mg PO DAILY #30 tab 01/22/21 Unknown Rx docusate calcium 240 mg PO DAILY PRN #20 cap 06/04/21 Unknown Rx polyethylene glycol 3350 [Miralax] 8.5 g PO DAILY PRN 28 Days #238 g 06/04/21 Unknown Rx Allergies Allergy/AdvReac Type Severity Reaction Status Date / Time codeine Allergy ALGY-Anaphy Verified 01/19/21 16:06 laxis PFSH Acute PFSH: Medical History Acute CVA (cerebrovascular accident) Afib CAD (coronary artery disease) CVA (cerebral vascular accident) Diabetes GI bleed TIA (transient ischemic attack) Ulcerative (chronic) enterocolitis Surgical History Hx of CABG Family History Other CAD (coronary artery disease) Stroke Social History Smoking and tobacco status: never smoked Alcohol intake: never Housing: House Vitals/I&O/Wt Last Vital Signs Temp 98.6 F 06/05/21 01:22 Pulse 69 06/05/21 01:22 Resp 16 06/05/21 02:14 BP 177/73 06/05/21 01:22 Pulse Ox 96 06/05/21 01:22 06/04/21 06/04/21 06/05/21 14:59 22:59 06:59 Intake Total 300 / 300 Balance 300 / 300 Weight last 48 hrs Weight 58.513 kg Weight 68.039 kg Physical Exam Narrative: EXAM NARRATIVE: General: No acute distress, AO x3 HEENT: PERRLA, pupils bilaterally equal and reactive, pallors not present Chest: Normal vesicular breath sounds, no added sounds, equal good air entry bilaterally CVS: S1-S2 regular, no murmurs, no tachycardia, no gallops, no rubs Abdomen: Soft, nontender, no organomegaly, bowel sounds present Neuro: No focal deficits, no facial deformity, AO x3, power 5/5 in all limbs Data : 06/04/21 19:31 06/04/21 19:31 A&P Assessment and plan (1) Colitis: Presenting today with chief complains of bowel impaction, and rectal bleeding noted on toilet paper, mixed may be secondary to hemorrhoidal bleeding versus fissures from excessive straining at stool. Patient does report using rectal suppositories prior to seeing the blood. Hemoglobin today is stable at 14.3. Patient is hemodynamically stable additionally. CT with changes of mild colitis, suspect this to be related to stercoral colitis. She is currently receiving lactulose in the ER. We will give her a trial of mag citrate additionally for constipation relief. Avoiding enemas for now due to rectal bleeding. We will monitor H&H Empiric Zosyn given elevated white blood cell count for now, however this may be related to dehydration. Leukocytosis corrects fairly quickly, lower suspicion for infective colitis and may discontinue antibiotics. Incidentally noted 3.1 cm nonspecific fluid collection in the left lumbar area, which is per reported by patient to be a previous site of a large hematoma after a fall following which patient was taken off anticoagulation. Suspect the changes in lumbar area to be from old trauma, likely a fluid collection. No overlying cellulitic changes. Low suspicion for this being an abscess, patient asymptomatic from this collection. No further doses of iv vancomycin indicated for now. Status: Acute Additional A&P Information h/o CVAs: continue Asa and Plavix, suspect hemorhhoidal bleeding as source of bleeding on toilet paper. monitor closely for any further bleeding episodes. Continue home meds Amiodarone, stains, imdur, lisinopril Attestations Medical Necessity Statement*: Less than 2 midnight admission anticipated for management of likely sterocoral colitis, monitor for rectal bleeding Coding Level of Care Code Acute 4 H Youth Development Specialist for Timmy Foley Diagnoses Colitis K52.9
[2021-06-05] MEDS: acetaminophen 325 mg Tablet 650 MG PO (05:09)
[2021-06-05 07:21] LABS: Basophils # 0.1 10^3/uL (0.0-0.1); Basophils % 0.3 %; Eosinophils % 0.1 %; Hematocrit 40.4 % (37.0-47.0); Hemoglobin 13.4 g/dL (11.5-15.3); Lymphocytes # 1.6 10^3/uL (0.8-4.8); Lymphocytes % 8.4 %; Mean Corpuscular HGB Conc 33.2 g/dL (30.0-36.0); Mean Corpuscular Hemoglobin 30.7 pg (28.0-34.0); Mean Corpuscular Volume 92.4 fl (81-99); Mean Platelet Volume 10.2 fL (7.4-10.4); Monocytes # 1.6 10^3/uL (0.2-0.9); Monocytes % 8.5 %; Neutrophils # 15.41 10^3/uL (1.8-7.7); Neutrophils % 82.4 %; Nucleated Red Blood Cells % 0 %; Platelet Count 209 10^3/cmm (130-400); Red Blood Count 4.37 10^6/uL (4.1-5.3); Red Cell Distribution Width 13.4 % (12.1-15.1); White Blood Count 18.7 10^3/uL (4.0-10.0)
[2021-06-05] MEDS: pantoprazole DR 40 mg Tablet PO (08:53)
[2021-06-05] MEDS: clopidogrel 75 mg Tablet PO (08:53)
[2021-06-05] MEDS: lisinopril 20 mg Tablet PO (08:54)
[2021-06-05] MEDS: amiodarone 200 mg Tablet PO (08:54)
[2021-06-05] MEDS: isosorbide mononitrate ER 60 mg Tablet PO (08:54)
[2021-06-05] MEDS: piperacillin-tazobactam 3.375 GM in sodium chloride 0.9% (plus) 50 ML IV ×2 (08:54→18:01)
--- NOTE | 2021-06-05 14:46 | PC.CHAP ---
Pastoral Care Encounter/Spiritual Assessment Type of Contact [] Declined finish off operator visit [] Patient/Family/Request visit [] Outpatient visit [] Follow-up visit [] Physician referral [] Code/Alert [] Routine visit [] Staff referral [] Actively dying [] Patient sleeping [] Family support [] [] Out of room [] Palliative care [] [xx] Receiving care in room [] Pre-surgical visit [] Trauma [] Long length of stay [] ICU visit [] Other: Relational/Emotional Strength [] Patient feels connected with others/family/visitors/staff [] Distress [] Loneliness/isolation [] Abandonment Spirituality of Patient [] Person of Dawn [] Attends Temple of their Dawn [] Believes in Prayer [] Reads Bible or Gnosticist materials [] There are Spiritual issues to be addressed Molder Helper Interventions [] Prayer [] Active listening [] Non-anxious presence [] Spiritual/emotional support [] Crisis/trauma care [] Spiritual counseling [] Bereavement support [] Provided bereavement packet [] Provided Bible/devotional materials [] Provided toy/stuffed animal, coloring book to patient or family member [] Provided Communion [] Anointing/[place] [] Salvation [] Completed spiritual assessment [] Other: Impact on Illness or Injury [] Angry [] Fearful [] Anxious [] Often cries [] Exhaustion [] Unable to work [] Unable to attend anabaptist [] Unable to walk/stand [] Unable to read [] Unable to drive [] Unable to eat/drink [] Unable to sleep [] Unable to be with family [] Patient intubated [] Other: Summary Follow up later Time spent with patient
[2021-06-05] MEDS: polyethylene glycol 3350 Pkt 17 gm PO (20:38)
[2021-06-05] MEDS: citalopram 20 mg Tablet PO (20:39)
[2021-06-05] MEDS: atorvastatin 40 mg Tablet 80 MG PO (20:39)
[2021-06-06] VITALS (7 sets, daily range): BP systolic 157–168; BP diastolic 66–84; PULSE 65–84; RESP 16–20; TEMP 36.4–37.1; O2SAT 91–96
[2021-06-06] MEDS: acetaminophen 325 mg Tablet 650 MG PO ×2 (00:41→23:15)
[2021-06-06] MEDS: piperacillin-tazobactam 3.375 GM in sodium chloride 0.9% (plus) 50 ML IV ×3 (01:24→17:52)
[2021-06-06 05:39] LABS: Basophils # 0.1 10^3/uL (0.0-0.1); Basophils % 0.5 %; Eosinophils # 0.1 10^3/uL (0.0-0.8); Hematocrit 37.9 % (37.0-47.0); Hemoglobin 12.5 g/dL (11.5-15.3); Lymphocytes # 2.6 10^3/uL (0.8-4.8); Lymphocytes % 23.6 %; Mean Corpuscular Hemoglobin 30.4 pg (28.0-34.0); Mean Corpuscular Volume 92.2 fl (81-99); Mean Platelet Volume 9.9 fL (7.4-10.4); Monocytes % 9.3 %; Neutrophils # 7.12 10^3/uL (1.8-7.7); Neutrophils % 65.4 %; Nucleated Red Blood Cells % 0 %; Platelet Count 205 10^3/cmm (130-400); Red Blood Count 4.11 10^6/uL (4.1-5.3); Red Cell Distribution Width 13.5 % (12.1-15.1); White Blood Count 10.9 10^3/uL (4.0-10.0)
[2021-06-06 05:58] LABS: Alanine Aminotransferase 46 U/L (0-33); Albumin Level 3.7 g/dL (3.5-5.2); Alkaline Phosphatase 88 IU/L (35-105); Anion Gap 17.4 (5-19); Aspartate Amino Transferase 38 U/L (0-32); Blood Urea Nitrogen 9 mg/dL (8-23); Calcium 8.4 mg/dL (8.5-10.5); Carbon Dioxide 22 mmol/L (22-29); Chloride 104 mmol/L (98-107); Globulin 2.8 g/dL (1.3-4.6); Glucose 68 mg/dL (65-115); Osmolality Calculated 287 mOsm/kg (285-295); Potassium 3.4 mmol/L (3.5-5.1); Sodium 140 mmol/L (136-145); Total Bilirubin 0.6 mg/dL (0.15-1.2); Total Protein 6.5 g/dL (6.6-8.7)
[2021-06-06] MEDS: pantoprazole DR 40 mg Tablet PO (10:19)
[2021-06-06] MEDS: clopidogrel 75 mg Tablet PO (10:19)
[2021-06-06] MEDS: amiodarone 200 mg Tablet PO (10:19)
[2021-06-06] MEDS: isosorbide mononitrate ER 60 mg Tablet PO (10:19)
[2021-06-06] MEDS: lisinopril 20 mg Tablet PO (10:19)
--- NOTE | 2021-06-06 11:33 | P.DS_ITS ---
Discharge Providers Date of Admission: 06/05/21 00:19 Date of Discharge: June 06, 2021 Attending Provider at Admission: Dominique Morales MD Attending Provider at Discharge: Clara Funk MD Diagnoses at Discharge Discharge Diagnosis (1) Colitis: Status: Acute Reason for Visit Reason for Visit: BOWEL IMPACTION Hospital Course Hospital Course History of Present Illness by Dr Andrew Lemonhoda Barcenas is a 76 year old female who has a history of multiple strokes in the past, history of atrial fibrillation not a candidate of anticoagulation due to history of recurrent falls and hematomas, presented today to the emergency room with chief complains of rectal bleeding and constipation. Patient states that she has been having difficulty having a bowel movement over the last 5 to 6 days, she has started tried multiple laxatives at home including prune juice, Metamucil without any significant relief. She is passing flatus, however feels this is less than usual. She she tried to suppositories yesterday without any success. This morning she noted that she had blood streaking on toilet paper 3 times which prompted her to present to the emergency room. She does have a past medical history of hemorrhoids. Last colonoscopy was 2 to 3 years ago, patient does not recall exact date, however states that this was reportedly normal. Has a past history of colitis additionally. No history of diverticulitis. She rates 3 out of 10 mild abdominal pain around the periumbilical area. No nausea or vomiting. Appetite is mildly reduced today. No history of hematemesis. No fever. She underwent a CAT scan of her abdomen which showed mild distal sigmoid and rectal wall thickening traffic workforce representative of a mild colitis and constipation. Incidentally noted was a left lower lumbar 3.1 cm fluid collection in the subcutaneous fat. Thereafter she underwent a lumbar MRI due to concern for a possible epidural abscess which was negative for the same however demonstrated again to 3.1 cm fluid collection. Per history patient states she suffered a fall approximately a year ago and had a large hematoma in that area which took several months to resolve. It was not amenable to drainage. Patient denies any pain in the area at this time. No fever, no overlying skin changes Hospital course: Patient was admitted for management of stroke of colitis she was started on IV Zosyn. She was given bowel regimen during her hospitalization she has had 3 bowel movements. Her symptoms improved, she was able to tolerate diet, no episodes of fever, nausea, vomiting or diarrhea. She will be discharged on bowel regimen, ciprofloxacin and Flagyl regimen. Physical Exam Narrative: EXAM NARRATIVE: Patient resting comfortably Doing well abdomen soft bowel sounds present S1, S2 variable EOMI, PERRLA Nonfocal neuro exam Saturating well on room air Discharge Data Data Completed and Pending: Completed Studies During Hospitalization Category Date Time Status CT abdomen pelvis w con* [id number] Urge nt Cat Scan 06/04/21 18:12 Completed MR lumbar spine w o/w con [id number] Urge nt MRI 06/04/21 21:16 Completed Labs from last 24 hours 06/06/21 06/06/21 04:55 04:55 WBC 10.9 H RBC 4.11 Hgb 12.5 Hct 37.9 MCV 92.2 MCH 30.4 MCHC 33.0 RDW 13.5 Plt Count 205 MPV 9.9 Neut % (Auto) 65.4 Lymph % (Auto) 23.6 [place] % (Auto) 9.3 Eos % (Auto) 1.0 Baso % (Auto) 0.5 Neut # (Auto) 7.12 Lymph # (Auto) 2.6 [place] # (Auto) 1.0 H Eos # (Auto) 0.1 Baso # (Auto) 0.1 Nucleated RBC % (a uto) 0 Nucleated RBCs # 0.0 Sodium 140 Potassium 3.4 L Chloride 104 Carbon Dioxide 22 Anion Gap 17.4 BUN 9 Creatinine 0.6 GFR Calculation Not Reportable Glucose 68 Calculated Osmolal ity 287 Calcium 8.4 L Total Bilirubin 0.6 AST 38 H ALT 46 H Alkaline Phosphata se 88 Total Protein 6.5 L Albumin 3.7 Globulin 2.8 Vitals: Last Vital Signs Temp 97.9 F 06/06/21 07:46 Pulse 79 06/06/21 07:46 Resp 16 06/06/21 07:46 BP 165/74 06/06/21 07:46 Pulse Ox 95 06/06/21 07:46 Discharge Plan Discharge Patient Disposition: Home Condition: Stable Prescriptions: New Miralax 17 gram/dose powder 8.5 g PO DAILY PRN (Reason: constipation) 28 Days Qty: 238 RF: 0 docusate calcium 240 mg capsule 240 mg PO DAILY PRN (Reason: constipation) Qty: 20 RF: 0 Stool Softener-Laxative 8.6-50 mg Tablet 2 tab PO BID PRN (Reason: constipation) Qty: 20 RF: 0 Flagyl 500 mg tablet 500 mg PO Q8H 5 Days Qty: 15 RF: 0 ciprofloxacin HCl 500 mg tablet 500 mg PO BID Qty: 10 RF: 0 Continued amiodarone 200 mg tablet 200 mg PO QAM RF: 0 isosorbide mononitrate 60 mg tablet extended release 24 hr 60 mg PO DAILY RF: 0 hydrocodone-acetaminophen 10-325 mg Tablet 1 tab PO Q4H PRN (Reason: Pain) RF: 0 citalopram [Celexa] 20 mg Tablet 40 mg PO BEDTIME RF: 0 clopidogrel 75 mg Tablet 75 mg PO DAILY Qty: 30 RF: 0 aspirin 81 mg Tablet,Delayed Release (Dr/Ec) 81 mg PO DAILY Qty: 30 RF: 0 tolterodine 4 mg Capsule,Extended Release 24hr 4 mg PO BEDTIME RF: 0 amlodipine 5 mg Tablet 5 mg PO DAILY RF: 0 metoprolol succinate 25 mg Tablet Extended Release 24 Hr 25 mg PO DAILY RF: 0 Vitamin D3 25 mcg (1,000 unit) Capsule 25 mcg PO DAILY RF: 0 atorvastatin 40 mg tablet 40 mg PO DAILY RF: 0 Discharge Orders: Discharge Order (Routine); Ordered 06/06/21 Ordered By: Clara Funk [facility]Other[facility] (Please call [facility] if you have any questions or concerns, they will be contacting you about resuming services. Their number is [phone].) Discharge Diet: Advance as tolerated Discharge Activity: Resume usual activity Patient Instructions: Ciprofloxacin (By mouth), Laxative, Stimulant (By mouth), Metronidazole (By mouth), Polyethylene Glycol 3350 (By mouth), Senna (By mouth), Constipation (ED), Opioid Safety Activity Restrictions/Additional Instructions: Please come back to the emergency room you have any more constipation, difficulty stooling, blood in stool, abdominal pain, nausea/vomiting or any new or concerning issues. Please follow up with your primary care provider if needed. Discharge Attestations Time Spent in Discharge Care*: less than 30 min Quality Metrics Clinical Quality Measures During this hospital stay, did patient experience: None Coding Level of Care Code Acute Chg FW DC note Diagnoses Colitis K52.9
[2021-06-06] MEDS: sennosides-docusate Tablet 2 TAB PO (17:52)
[2021-06-06] MEDS: polyethylene glycol 3350 Pkt 17 gm PO (20:24)
[2021-06-06] MEDS: citalopram 20 mg Tablet PO (20:25)
[2021-06-06] MEDS: atorvastatin 40 mg Tablet 80 MG PO (20:25)
[2021-06-07] MEDS: piperacillin-tazobactam 3.375 GM in sodium chloride 0.9% (plus) 50 ML IV (01:28)
[2021-06-07 04:00] VITALS: BP 121/63; PULSE 83; RESP 17; TEMP 36.8; O2SAT 92
[2021-06-07 07:20] VITALS: BP 155/67; PULSE 63; RESP 18; TEMP 36.8; O2SAT 95
[2021-06-07 08:00] VITALS: BP 157/76; PULSE 72; RESP 16; TEMP 36.5; O2SAT 93
[2021-06-07] MEDS: pantoprazole DR 40 mg Tablet PO (08:28)
[2021-06-07] MEDS: amiodarone 200 mg Tablet PO (08:28)
[2021-06-07] MEDS: isosorbide mononitrate ER 60 mg Tablet PO (08:28)
[2021-06-07] MEDS: clopidogrel 75 mg Tablet PO (08:28)
[2021-06-07] MEDS: sennosides-docusate Tablet 2 TAB PO (08:28)
[2021-06-07] MEDS: lisinopril 20 mg Tablet PO (08:28)
--- NOTE | 2021-06-07 10:08 | PC.CHAP ---
Pastoral Care Encounter/Spiritual Assessment Type of Contact [] Declined yarn winder visit [] Patient/Family/Request visit [] Outpatient visit [] Follow-up visit [] Physician referral [] Code/Alert [x] Routine visit [] Staff referral [] Actively dying [] Patient sleeping [] Family support [] [] Out of room [] Palliative care [] [] Receiving care in room [] Pre-surgical visit [] Trauma [] Long length of stay [] ICU visit [] Other: Relational/Emotional Strength [x Patient feels connected with others/family/visitors/staff [] Distress [] Loneliness/isolation [] Abandonment Spirituality of Patient [x] Person of Dawn [x] Attends Religion of their Dawn [x] Believes in Prayer [] Reads Bible or Rastafarian materials [] There are Spiritual issues to be addressed Infrastructure Manager Interventions [x] Prayer [x] Active listening [x] Non-anxious presence [x] Spiritual/emotional support [] Crisis/trauma care [] Spiritual counseling [] Bereavement support [] Provided bereavement packet [] Provided Bible/devotional materials [] Provided toy/stuffed animal, coloring book to patient or family member [] Provided Communion [] Anointing/[place] [] Salvation [x] Completed spiritual assessment [] Other: Impact on Illness or Injury [] Angry [] Fearful [] Anxious [] Often cries [] Exhaustion [] Unable to work [] Unable to attend mormonism [] Unable to walk/stand [] Unable to read [] Unable to drive [] Unable to eat/drink [] Unable to sleep [] Unable to be with family [] Patient intubated [] Other: Summary Infrastructure Manager prayed with Patient. Time spent with patient 8 minutes.
[2021-06-07 10:57] VITALS: BP 145/69; PULSE 63; RESP 18; TEMP 36.7; O2SAT 92
== END 2021-06-07 15:00 | disposition home or self-care (01) ==
LOC: ER 22:48 → MEDSURG 06-05 00:27
PROVIDERS: Emergency Medicine; Admitting Provider Student in an Organized Health Care Education/Training Program; Emergency Provider Emergency Medicine; Visit Provider Internal Medicine
DX: K52.9 Noninfective gastroenteritis and colitis, unspecified (principal); K56.49 Other impaction of intestine; I25.10 Atherosclerotic heart disease of native coronary artery without angina pectoris; E11.9 Type 2 diabetes mellitus without complications; I48.91 Unspecified atrial fibrillation; Z79.82 Long term (current) use of aspirin; Z95.1 Presence of aortocoronary bypass graft; Z86.73 Personal history of transient ischemic attack (TIA), and cerebral infarction without residual deficits
CPT/HCPCS: 36415; 72158; 74177; 80053; 81001; 83690; 85025; 96365; 96367; 96375; 96376; 99285; A9579; G0378; J0692; J2270; J2543; J3370; J7030; J7050; Q9967

== ENCOUNTER 2021-09-20 17:24 | Emergency (ER) | payer MEDICARE, OTHER, SELFPAY ==
[2021-09-20 17:25] VITALS: BP 177/84; PULSE 65; RESP 16; TEMP 36.8; O2SAT 96; BMI 26.5
--- NOTE | 2021-09-20 17:36 | W.ED.EXTPRO ---
Documented by User: CLARE Lester 09/20/21 19:47 HPI - Extremity Problem General: Chief complaint: Extremity Injury, Lower Stated complaint: RIGHT HIP PAIN S/P FALL Time Seen by Provider: 09/20/21 17:35 History of Present Illness: 76-year-old elderly female that is alert and responds appropriate to questions. Patient report tripping and falling and hurting her right hip. Patient reports that she has had some more frequent falls over the last month. Patient reports pain is mainly in the right hip and low back. Patient has a history of coronary artery disease, diabetes mellitus, use of antiplatelet agents, overactive bladder. Patient reports lightly hitting her head but denies any loss of consciousness. No obvious deformity is noted to the right lower extremity. Patient is able to lift right and left lower extremity off the bed. MD Complaint: extremity pain Onset (ago): hour(s) Pain Consistency: constant Location: right and lower extremity Relieving factors: rest Exacerbating factors: weight bearing Associated symptoms: Reports no associated symptoms; Deny chest pain, fever(s) or rash Review of Systems General: Reports: 10 or more systems reviewed and unremarkable except in HPI and below Const: Denies: fever(s) Card: Denies: chest pain Resp: Denies: dyspnea GI: Denies: nausea or vomiting : Reports: urinary incontinence Musc: Reports: back pain and extremity pain Skin/Breast: Denies: rash Neuro: Denies: headache(s) Raymond/Lymph: Reports: easy bruising PFSH ED PFSH: Medical History Acute CVA (cerebrovascular accident) Afib CAD (coronary artery disease) CVA (cerebral vascular accident) Diabetes GI bleed TIA (transient ischemic attack) Ulcerative (chronic) enterocolitis Surgical History Hx of CABG Family History Other CAD (coronary artery disease) Stroke Social History Smoking and tobacco status: never smoked Alcohol intake: never Housing: House Physical Exam Const: COMMON NORMALS: alert HENMT: COMMON NORMALS: Normal external nose present HEAD & SCALP: normal to inspection NOSE: Normal external nose present MOUTH: Normal oral and palatal mucosa present Eye: COMMON NORMALS: EOMs intact bilaterally Neck/C-Spine: COMMON NORMALS: full ROM Chest: COMMONS NORMALS: normal palpation of entire chest wall Resp: COMMON NORMALS: normal respiratory effort and clear to auscultation bilaterally AUSCULTATION: clear to auscultation bilaterally Cardio: COMMON NORMALS: regular rate and regular rhythm RATE: regular rate RHYTHM: regular rhythm GI: COMMON NORMALS: Soft to palpation PALPATION: Yes Soft to palpation and Yes Tenderness to palpation present (GI) (Suprapubic) Back/Pelvis: LUMBAR SPINE/LOWER BACK: Yes lumbar spinal tenderness Extremity: RIGHT LOWER EXTREMITY: Yes hip joint (Lateral tenderness of the hip) Right hip: Yes inspection, Yes palpation, Yes ROM and Yes neurovascular exam Neuro: LEVI COMA SCALE: document GCS findings [place] coma scale eye opening: Spontaneous Levi coma scale verbal response: Orientated [place] coma scale motor response: Obey commands Levi coma scale total score: 15 SENSORIUM/ORIENTATION: Yes alert Psych: COMMON NORMALS: cooperative Skin: COMMON NORMALS: no rashes or lesions noted GENERAL SKIN EXAM: no rashes or lesions noted Course ED course: 1914, x-rays of the hip and pelvis indicated no acute fracture. CT of the brain indicated no intracranial bleeding. CT of the lumbar spine at L1 noticed a compression fracture with unknown age. Patient reports that that is where her pain is mainly. Suspect a new vertebral fracture. Patient was able to stand and ambulate with 2 person assist to the restroom and back to bed with minimal difficulty. Patient does use a walker at home. Vital Signs: Vital signs: Vital Signs Temperature 98.2 F 09/20/21 17:25 Pulse Rate 66 09/20/21 19:37 Respiratory Rate 16 09/20/21 19:37 Blood Pressure 138/69 09/20/21 19:37 Pulse Oximetry 96 09/20/21 19:37 MDM - Extremity (Nontraumatic) Medical Decision Making 76-year-old female comes in today for evaluation of injury sustained during a fall. Patient complains of right hip pain. On exam there is no obvious shortening or external rotation of the hip. Patient is able to lift leg off the bed without difficulty. Patient is also able to lift left leg off the bed. Patient is able to roll in bed without difficulty. Patient does have some tenderness of the lumbar spine. Respirations are even lungs are clear to auscultation. Patient is alert and oriented. Differential diagnosis includes not limited to fracture of the hip, lumbar fracture, intracranial bleeding, contusions. CT suggests a vertebral fracture at L1. X-rays showed no fractures of the hip pelvis or any intracranial bleeding or mass-effect. We will prescribe patient some hydrocodone for severe pain. Encourage use of acetaminophen. Encourage activity as tolerated. Recommended use of a walker for protection. We will have case management have patient follow-up with orthopedic spine for further evaluation and treatment. Patient reported understanding and agreed to plan. Lab Data : 09/20/21 18:09 09/20/21 18:09 Radiology Impressions Chest X-Ray 09/20/21 17:42 IMPRESSION: Negative for infiltrate Head CT 09/20/21 17:42 IMPRESSION: 1. Negative for intracranial hemorrhage or mass effect. 2. Right temporal lobe chronic infarct. 3. Large amount diffuse white matter disease likely reflecting chronic microvascular ischemic changes. 4. Diffuse ventricular prominence similar to prior exam likely secondary to underlying parenchymal atrophy. 5. Bilateral chronic thalamic lacunar infarcts. Hip/Pelvis X-Ray 09/20/21 17:42 IMPRESSION: 1. Negative for fracture or dislocation, if clinical concern for fracture remains consider further evaluation with a CT scan given patient's decreased bone mineral density. 2. Severe right hip osteoarthritis. Lumbar Spine CT 09/20/21 17:42 IMPRESSION: 1. L1 vertebral body superior endplate compression deformity without retropulsion of bony fragments, age indeterminate. 2. L3-L4 bilobed posterior disc bulge with mild bilateral foraminal narrowing. 3. L4-L5 broad-based disc bulge with moderate spinal canal and bilateral foraminal narrowing. 4. L5/S1 broad-based disc bulge with moderate bilateral foraminal narrowing. Laboratory Results WBC 7.9 10^3/uL (4.0-10.0) 09/20/21 18:09 RBC 4.51 10^6/uL (4.1-5.3) 09/20/21 18:09 Hgb 14.3 g/dL (11.5-15.3) 09/20/21 18:09 Hct 42.6 % (37.0-47.0) 09/20/21 18:09 MCV 94.5 fl (81-99) 09/20/21 18:09 MCH 31.7 pg (28.0-34.0) 09/20/21 18:09 MCHC 33.6 g/dL (30.0-36.0) 09/20/21 18:09 RDW 12.8 % (12.1-15.1) 09/20/21 18:09 Plt Count 227 10^3/cmm (130-400) 09/20/21 18:09 MPV 9.5 fL (7.4-10.4) 09/20/21 18:09 Neut % (Auto) 68.0 % 09/20/21 18:09 Lymph % (Auto) 19.8 % 09/20/21 18:09 Rogers % (Auto) 9.4 % 09/20/21 18:09 Eos % (Auto) 1.5 % 09/20/21 18:09 Baso % (Auto) 0.9 % 09/20/21 18:09 Neut # (Auto) 5.37 10^3/uL (1.8-7.7) 09/20/21 18:09 Lymph # (Auto) 1.6 10^3/uL (0.8-4.8) 09/20/21 18:09 Rogers # (Auto) 0.7 10^3/uL (0.2-0.9) 09/20/21 18:09 Eos # (Auto) 0.1 10^3/uL (0.0-0.8) 09/20/21 18:09 Baso # (Auto) 0.1 10^3/uL (0.0-0.1) 09/20/21 18:09 Nucleated RBC % (auto) 0 % 09/20/21 18:09 Nucleated RBCs # 0.0 /100WBC 09/20/21 18:09 Sodium 140 mmol/L (136-145) 09/20/21 18:09 Potassium 3.8 mmol/L (3.5-5.1) 09/20/21 18:09 Chloride 103 mmol/L (98-107) 09/20/21 18:09 Carbon Dioxide 26 mmol/L (22-29) 09/20/21 18:09 Anion Gap 14.8 (5-19) 09/20/21 18:09 BUN 15 mg/dL (8-23) 09/20/21 18:09 Creatinine 0.7 mg/dL (0.5-0.9) 09/20/21 18:09 GFR Calculation Not Reportable 09/20/21 18:09 Glucose 112 mg/dL (65-115) 09/20/21 18:09 Calculated Osmolality 292 mOsm/kg (285-295) 09/20/21 18:09 Calcium 9.8 mg/dL (8.5-10.5) 09/20/21 18:09 Total Bilirubin 0.4 mg/dL (0.15-1.2) 09/20/21 18:09 AST 33 U/L (0-32) H 09/20/21 18:09 ALT 38 U/L (0-33) H 09/20/21 18:09 Alkaline Phosphatase 96 IU/L (35-105) 09/20/21 18:09 Total Protein 7.3 g/dL (6.6-8.7) 09/20/21 18:09 Albumin 4.1 g/dL (3.5-5.2) 09/20/21 18:09 Globulin 3.2 g/dL (1.3-4.6) 09/20/21 18:09 EKG Data EKG 1: EKG interpretation date: 09/20/21 EKG interpretation time: 18:11 Interpretation: EKG shows a regular rhythm at 63 bpm, first-degree AV block is noted, no ST elevation is noted, no prior exam is available for comparison at this time. Discharge Plan Discharge Patient Disposition: Home Clinical Impression: L1 vertebral fracture Qualifiers: Encounter type: initial encounter Fracture type: closed Fracture morphology: wedge compression Qualified Code(s): S32.010A - Wedge compression fracture of first lumbar vertebra, initial encounter for closed fracture Condition: Stable Prescriptions: New hydrocodone-acetaminophen 5-325 mg tablet 1 tab PO Q6H PRN (Reason: pain) Qty: 14 0RF Discontinued hydrocodone-acetaminophen 10-325 mg Tablet 1 tab PO Q4H PRN (Reason: Pain) 0RF No Action amiodarone 200 mg tablet 200 mg PO QAM 0RF isosorbide mononitrate 60 mg tablet extended release 24 hr 60 mg PO DAILY 0RF citalopram [Celexa] 20 mg Tablet 40 mg PO BEDTIME 0RF clopidogrel 75 mg Tablet 75 mg PO DAILY Qty: 30 0RF aspirin 81 mg Tablet,Delayed Release (Dr/Ec) 81 mg PO DAILY Qty: 30 0RF docusate calcium 240 mg capsule 240 mg PO DAILY PRN (Reason: constipation) Qty: 20 0RF tolterodine 4 mg Capsule,Extended Release 24hr 4 mg PO BEDTIME 0RF amlodipine 5 mg Tablet 5 mg PO DAILY 0RF metoprolol succinate 25 mg Tablet Extended Release 24 Hr 25 mg PO DAILY 0RF Vitamin D3 25 mcg (1,000 unit) Capsule 25 mcg PO DAILY 0RF atorvastatin 40 mg tablet 40 mg PO DAILY 0RF Stool Softener-Laxative 8.6-50 mg Tablet 2 tab PO BID PRN (Reason: constipation) Qty: 20 0RF ciprofloxacin HCl 500 mg tablet 500 mg PO BID Qty: 10 0RF Hjdnf-[id number]-Sro Enema 19-7 gram/118 mL enema 118 ml LA DAILY PRN (Reason: constipation) 2 Days Qty: 133 1RF Discharge Orders: Discharge ED (Routine); Ordered 09/20/21 Ordered By: Wyatt Doyle Discharge Diet: Usual diet Discharge Activity: Increase activity as tolerated Patient Instructions: Vertebral Compression Fracture (ED), Opioid Safety Activity Restrictions/Additional Instructions: Activity as tolerated. Use walker for ambulation. Use acetaminophen to control pain. Use hydrocodone for severe pain. Drink plenty of water with medication. Maintain activity as tolerated. Follow-up with primary care in 3 days for recheck. Return to ER for new concerns. Case management will contact you regarding follow-up with logistics management specialist. Coding Level of Care Code ED Slurry Control Tender for Chg Fwd Exam Comprehensive Documented by User: Jhony Escalante DO 09/21/21 03:18 HPI - Extremity Problem General: Chief complaint: Extremity Injury, Lower Stated complaint: RIGHT HIP PAIN S/P FALL Time Seen by Provider: 09/20/21 17:35 PFSH ED PFSH: Medical History Acute CVA (cerebrovascular accident) Afib CAD (coronary artery disease) CVA (cerebral vascular accident) Diabetes GI bleed TIA (transient ischemic attack) Ulcerative (chronic) enterocolitis Surgical History Hx of CABG Family History Other CAD (coronary artery disease) Stroke Social History Smoking and tobacco status: never smoked Alcohol intake: never Housing: House Physical Exam Neuro: LEVI COMA SCALE: document GCS findings Levi coma scale total score: 15 Course Vital Signs: Vital signs: Vital Signs Temperature 98.2 F 09/20/21 17:25 Pulse Rate 66 09/20/21 19:37 Respiratory Rate 16 09/20/21 19:37 Blood Pressure 138/69 09/20/21 19:37 Pulse Oximetry 96 09/20/21 19:37 MDM - Extremity (Nontraumatic) Medical Decision Making 76-year-old female comes in today for evaluation of injury sustained during a fall. Patient complains of right hip pain. On exam there is no obvious shortening or external rotation of the hip. Patient is able to lift leg off the bed without difficulty. Patient is also able to lift left leg off the bed. Patient is able to roll in bed without difficulty. Patient does have some tenderness of the lumbar spine. Respirations are even lungs are clear to auscultation. Patient is alert and oriented. Differential diagnosis includes not limited to fracture of the hip, lumbar fracture, intracranial bleeding, contusions. CT suggests a vertebral fracture at L1. X-rays showed no fractures of the hip pelvis or any intracranial bleeding or mass-effect. We will prescribe patient some hydrocodone for severe pain. Encourage use of acetaminophen. Encourage activity as tolerated. Recommended use of a walker for protection. We will have case management have patient follow-up with orthopedic spine for further evaluation and treatment. Patient reported understanding and agreed to plan. This patient was originally seen by CLARE Leach.? I agree with his history, evaluation, and treatment. Lab Data : 09/20/21 18:09 09/20/21 18:09 Radiology Impressions Chest X-Ray 09/20/21 17:42 IMPRESSION: Negative for infiltrate Head CT 09/20/21 17:42 IMPRESSION: 1. Negative for intracranial hemorrhage or mass effect. 2. Right temporal lobe chronic infarct. 3. Large amount diffuse white matter disease likely reflecting chronic microvascular ischemic changes. 4. Diffuse ventricular prominence similar to prior exam likely secondary to underlying parenchymal atrophy. 5. Bilateral chronic thalamic lacunar infarcts. Hip/Pelvis X-Ray 09/20/21 17:42 IMPRESSION: 1. Negative for fracture or dislocation, if clinical concern for fracture remains consider further evaluation with a CT scan given patient's decreased bone mineral density. 2. Severe right hip osteoarthritis. Lumbar Spine CT 09/20/21 17:42 IMPRESSION: 1. L1 vertebral body superior endplate compression deformity without retropulsion of bony fragments, age indeterminate. 2. L3-L4 bilobed posterior disc bulge with mild bilateral foraminal narrowing. 3. L4-L5 broad-based disc bulge with moderate spinal canal and bilateral foraminal narrowing. 4. L5/S1 broad-based disc bulge with moderate bilateral foraminal narrowing. Laboratory Results WBC 7.9 10^3/uL (4.0-10.0) 09/20/21 18:09 RBC 4.51 10^6/uL (4.1-5.3) 09/20/21 18:09 Hgb 14.3 g/dL (11.5-15.3) 09/20/21 18:09 Hct 42.6 % (37.0-47.0) 09/20/21 18:09 MCV 94.5 fl (81-99) 09/20/21 18:09 MCH 31.7 pg (28.0-34.0) 09/20/21 18:09 MCHC 33.6 g/dL (30.0-36.0) 09/20/21 18:09 RDW 12.8 % (12.1-15.1) 09/20/21 18:09 Plt Count 227 10^3/cmm (130-400) 09/20/21 18:09 MPV 9.5 fL (7.4-10.4) 09/20/21 18:09 Neut % (Auto) 68.0 % 09/20/21 18:09 Lymph % (Auto) 19.8 % 09/20/21 18:09 Rogers % (Auto) 9.4 % 09/20/21 18:09 Eos % (Auto) 1.5 % 09/20/21 18:09 Baso % (Auto) 0.9 % 09/20/21 18:09 Neut # (Auto) 5.37 10^3/uL (1.8-7.7) 09/20/21 18:09 Lymph # (Auto) 1.6 10^3/uL (0.8-4.8) 09/20/21 18:09 Rogers # (Auto) 0.7 10^3/uL (0.2-0.9) 09/20/21 18:09 Eos # (Auto) 0.1 10^3/uL (0.0-0.8) 09/20/21 18:09 Baso # (Auto) 0.1 10^3/uL (0.0-0.1) 09/20/21 18:09 Nucleated RBC % (auto) 0 % 09/20/21 18:09 Nucleated RBCs # 0.0 /100WBC 09/20/21 18:09 Sodium 140 mmol/L (136-145) 09/20/21 18:09 Potassium 3.8 mmol/L (3.5-5.1) 09/20/21 18:09 Chloride 103 mmol/L (98-107) 09/20/21 18:09 Carbon Dioxide 26 mmol/L (22-29) 09/20/21 18:09 Anion Gap 14.8 (5-19) 09/20/21 18:09 BUN 15 mg/dL (8-23) 09/20/21 18:09 Creatinine 0.7 mg/dL (0.5-0.9) 09/20/21 18:09 GFR Calculation Not Reportable 09/20/21 18:09 Glucose 112 mg/dL (65-115) 09/20/21 18:09 Calculated Osmolality 292 mOsm/kg (285-295) 09/20/21 18:09 Calcium 9.8 mg/dL (8.5-10.5) 09/20/21 18:09 Total Bilirubin 0.4 mg/dL (0.15-1.2) 09/20/21 18:09 AST 33 U/L (0-32) H 09/20/21 18:09 ALT 38 U/L (0-33) H 09/20/21 18:09 Alkaline Phosphatase 96 IU/L (35-105) 09/20/21 18:09 Total Protein 7.3 g/dL (6.6-8.7) 09/20/21 18:09 Albumin 4.1 g/dL (3.5-5.2) 09/20/21 18:09 Globulin 3.2 g/dL (1.3-4.6) 09/20/21 18:09 Discharge Plan Discharge Patient Disposition: Home Clinical Impression: L1 vertebral fracture Qualifiers: Encounter type: initial encounter Fracture type: closed Fracture morphology: wedge compression Qualified Code(s): S32.010A - Wedge compression fracture of first lumbar vertebra, initial encounter for closed fracture Condition: Stable Prescriptions: New hydrocodone-acetaminophen 5-325 mg tablet 1 tab PO Q6H PRN (Reason: pain) Qty: 14 0RF Discontinued hydrocodone-acetaminophen 10-325 mg Tablet 1 tab PO Q4H PRN (Reason: Pain) 0RF No Action amiodarone 200 mg tablet 200 mg PO QAM 0RF isosorbide mononitrate 60 mg tablet extended release 24 hr 60 mg PO DAILY 0RF citalopram [Celexa] 20 mg Tablet 40 mg PO BEDTIME 0RF clopidogrel 75 mg Tablet 75 mg PO DAILY Qty: 30 0RF aspirin 81 mg Tablet,Delayed Release (Dr/Ec) 81 mg PO DAILY Qty: 30 0RF docusate calcium 240 mg capsule 240 mg PO DAILY PRN (Reason: constipation) Qty: 20 0RF tolterodine 4 mg Capsule,Extended Release 24hr 4 mg PO BEDTIME 0RF amlodipine 5 mg Tablet 5 mg PO DAILY 0RF metoprolol succinate 25 mg Tablet Extended Release 24 Hr 25 mg PO DAILY 0RF Vitamin D3 25 mcg (1,000 unit) Capsule 25 mcg PO DAILY 0RF atorvastatin 40 mg tablet 40 mg PO DAILY 0RF Stool Softener-Laxative 8.6-50 mg Tablet 2 tab PO BID PRN (Reason: constipation) Qty: 20 0RF ciprofloxacin HCl 500 mg tablet 500 mg PO BID Qty: 10 0RF Cfkaw-Ab-Uwc Enema 19-7 gram/118 mL enema 118 ml LA DAILY PRN (Reason: constipation) 2 Days Qty: 133 1RF Discharge Orders: Discharge ED (Routine); Ordered 09/20/21 Ordered By: Wyatt Doyle Discharge Diet: Usual diet Discharge Activity: Increase activity as tolerated Patient Instructions: Vertebral Compression Fracture (ED), Opioid Safety Activity Restrictions/Additional Instructions: Activity as tolerated. Use walker for ambulation. Use acetaminophen to control pain. Use hydrocodone for severe pain. Drink plenty of water with medication. Maintain activity as tolerated. Follow-up with primary care in 3 days for recheck. Return to ER for new concerns. Case management will contact you regarding follow-up with logistics management specialist. Coding Level of Care Code ED Slurry Control Tender for Timmy Foley Exam Comprehensive
--- NOTE | 2021-09-20 17:42 | XRR_ITS ---
PROCEDURE INFORMATION: Exam: XR Right Hip Exam date and time: 09/20/2021 5:54 PM Age: 76 years old Clinical indication: Injury or trauma; Fall; Blunt trauma (contusions or hematomas); Right; Hip; Additional info: Fall, hip pain, include pelvis please, include pelvis please TECHNIQUE: Imaging protocol: XR Right hip. Views: 1 view hip with pelvis when performed. COMPARISON: CT abdomen pelvis w con* [id number] 06/04/2021 8:20 PM FINDINGS: Bones/joints: Severe right hip osteoarthritis. Soft tissues: Unremarkable. XR/XR hip RT 2-3V wo/w pel* [id number] IMPRESSION: 1. Negative for fracture or dislocation, if clinical concern for fracture remains consider further evaluation with a CT scan given patient's decreased bone mineral density. 2. Severe right hip osteoarthritis.
--- NOTE | 2021-09-20 17:42 | XRR_ITS ---
PROCEDURE INFORMATION: Exam: XR Chest Exam date and time: 09/20/2021 5:54 PM Age: 76 years old Clinical indication: Injury or trauma; Fall; Blunt trauma (contusions or hematomas) TECHNIQUE: Imaging protocol: XR of the chest. Views: 1 view. COMPARISON: CR Chest 1 [place] [id number] 04/29/2015 7:21 AM FINDINGS: Lungs: Unremarkable. No consolidation. Pleural spaces: Unremarkable. No pleural effusion. No pneumothorax. Heart/Mediastinum: Unremarkable. No cardiomegaly. Bones/joints: Sternotomy wires. XR/XR chest 1V portable [id number] IMPRESSION: Negative for infiltrate
--- NOTE | 2021-09-20 17:42 | CTR_ITS ---
PROCEDURE INFORMATION: Exam: CT Lumbar Spine Without Contrast Exam date and time: 09/20/2021 6:47 PM Age: 76 years old Clinical indication: Injury or trauma; Blunt trauma (contusions or hematomas); Patient HX: C/O lbp after fall 3 days ago; Additional info: Fall low back pain TECHNIQUE: Imaging protocol: Computed tomography images of the lumbar spine without contrast. Radiation optimization: All CT scans at this facility use at least one of these dose optimization techniques: automated exposure control; mA and/or kV adjustment per patient size (includes targeted exams where dose is matched to clinical indication); or iterative reconstruction. COMPARISON: MR lumbar spine wo/w con [id number] 06/04/2021 10:33 PM RADIATION DOSE METRICS: Total DLP (mGy-cm): 1631.98 FINDINGS: Vertebrae: L1 vertebral body superior endplate compression deformity without retropulsion of bony fragments, age indeterminate. L1-L2: No significant disc protrusion. No severe spinal canal stenosis. No significant neural foraminal narrowing. L2-L3: No significant disc protrusion. No severe spinal canal stenosis. No significant neural foraminal narrowing. L3-L4: L3-L4 bilobed posterior disc bulge with mild bilateral foraminal narrowing. L4-L5: L4-L5 broad-based disc bulge with moderate spinal canal and bilateral foraminal narrowing. L5-S1: L5/S1 broad-based disc bulge with moderate bilateral foraminal narrowing. Soft tissues: Unremarkable. CT/CT lumbar spine wo con* [id number] IMPRESSION: 1. L1 vertebral body superior endplate compression deformity without retropulsion of bony fragments, age indeterminate. 2. L3-L4 bilobed posterior disc bulge with mild bilateral foraminal narrowing. 3. L4-L5 broad-based disc bulge with moderate spinal canal and bilateral foraminal narrowing. 4. L5/S1 broad-based disc bulge with moderate bilateral foraminal narrowing.
--- NOTE | 2021-09-20 17:42 | CTR_ITS ---
PROCEDURE INFORMATION: Exam: CT Head Without Contrast Exam date and time: 09/20/2021 6:44 PM Age: 76 years old Clinical indication: Injury or trauma; Blunt trauma (contusions or hematomas); Without loss of consciousness; Patient HX: C/O DOVE after fall 3 days ago TECHNIQUE: Imaging protocol: Computed tomography of the head without contrast. Radiation optimization: All CT scans at this facility use at least one of these dose optimization techniques: automated exposure control; mA and/or kV adjustment per patient size (includes targeted exams where dose is matched to clinical indication); or iterative reconstruction. COMPARISON: MR head wo con* [id number] 01/21/2021 2:51 PM RADIATION DOSE METRICS: Total DLP (mGy-cm): 787.93 FINDINGS: Brain: Right temporal lobe chronic infarct. Large amount diffuse white matter disease likely reflecting chronic microvascular ischemic changes. Bilateral chronic thalamic lacunar infarcts. Cerebral ventricles: Diffuse ventricular prominence similar to prior exam likely secondary to underlying parenchymal atrophy. Paranasal sinuses: Visualized sinuses are unremarkable. No fluid levels. Mastoid air cells: Visualized mastoid air cells are well aerated. Bones/joints: Unremarkable. No acute fracture. Soft tissues: Unremarkable. CT/CT head wo con* [id number] IMPRESSION: 1. Negative for intracranial hemorrhage or mass effect. 2. Right temporal lobe chronic infarct. 3. Large amount diffuse white matter disease likely reflecting chronic microvascular ischemic changes. 4. Diffuse ventricular prominence similar to prior exam likely secondary to underlying parenchymal atrophy. 5. Bilateral chronic thalamic lacunar infarcts.
--- NOTE | 2021-09-20 17:45 | ECG_ITS ---
[facility] Test Date: 2021-09-20 Pat Name: Carolina Barcenas Department: Room: Gender: Female Manager Staffing: : 1945 Requested By: Wyatt Steward Order Number: [id number] Jose MD: Tab Dawson M.D. Measurements Intervals [place] Rate: 63 P: 85 AK: 234 QRS: 11 QRSD: 108 T: 102 QT: 432 QTc: 442 Interpretive Statements SINUS RHYTHM WITH FIRST DEGREE AV BLOCK POSSIBLE SEPTAL MYOCARDIAL INFARCTION , PROBABLY OLD [30 ms Q WAVE IN V1/V2] Compared to ECG 01/19/2021 18:55:46 Sinus bradycardia no longer present Sinus arrhythmia no longer present T-wave abnormality no longer present Possible ischemia no longer present Myocardial infarct finding still present Electronically Signed On 09-22-2021 9:22:12 CDT by Tab Dawson M.D. [id number]
[2021-09-20 18:07] VITALS: RESP 16
[2021-09-20] MEDS: morphine 4 mg/mL SDV 1 mL 2 MG IVP (18:07)
[2021-09-20] MEDS: sodium chloride 0.9% 250 ML IV (18:07)
[2021-09-20] MEDS: ondansetron 2 mg/ML SDV 2 mL 4 MG IVP (18:07)
[2021-09-20 18:20] LABS: Basophils # 0.1 10^3/uL (0.0-0.1); Basophils % 0.9 %; Eosinophils # 0.1 10^3/uL (0.0-0.8); Eosinophils % 1.5 %; Hematocrit 42.6 % (37.0-47.0); Hemoglobin 14.3 g/dL (11.5-15.3); Lymphocytes # 1.6 10^3/uL (0.8-4.8); Lymphocytes % 19.8 %; Mean Corpuscular HGB Conc 33.6 g/dL (30.0-36.0); Mean Corpuscular Hemoglobin 31.7 pg (28.0-34.0); Mean Corpuscular Volume 94.5 fl (81-99); Mean Platelet Volume 9.5 fL (7.4-10.4); Monocytes # 0.7 10^3/uL (0.2-0.9); Monocytes % 9.4 %; Neutrophils # 5.37 10^3/uL (1.8-7.7); Nucleated Red Blood Cells % 0 %; Platelet Count 227 10^3/cmm (130-400); Red Blood Count 4.51 10^6/uL (4.1-5.3); Red Cell Distribution Width 12.8 % (12.1-15.1); White Blood Count 7.9 10^3/uL (4.0-10.0)
[2021-09-20 18:56] LABS: Alanine Aminotransferase 38 U/L (0-33); Albumin Level 4.1 g/dL (3.5-5.2); Alkaline Phosphatase 96 IU/L (35-105); Anion Gap 14.8 (5-19); Aspartate Amino Transferase 33 U/L (0-32); Blood Urea Nitrogen 15 mg/dL (8-23); Calcium 9.8 mg/dL (8.5-10.5); Carbon Dioxide 26 mmol/L (22-29); Chloride 103 mmol/L (98-107); Globulin 3.2 g/dL (1.3-4.6); Glucose 112 mg/dL (65-115); Osmolality Calculated 292 mOsm/kg (285-295); Potassium 3.8 mmol/L (3.5-5.1); Sodium 140 mmol/L (136-145); Total Bilirubin 0.4 mg/dL (0.15-1.2); Total Protein 7.3 g/dL (6.6-8.7)
[2021-09-20 19:37] VITALS: BP 138/69; PULSE 66; RESP 16; O2SAT 96
--- NOTE | 2021-09-21 14:57 | DCPLANNER ---
Addendum entered by Augusta Chow 10/28/21 20:05: Patient had a follow up appointment scheduled with ortho - patient did not attend appointment. Addendum entered by Augusta Chow 09/22/21 08:40: Patient has a follow up appointment scheduled for Wednesday, September 29, 2021 at 9:00 with NEGAR Lisa at ortho. Clinic will call patient with appointment information. Original Note: electrical project manager had message to schedule a follow up appointment for patient with ortho. electrical project manager sent patients information to the ortho clinic front staff, thru workload messaging system. Patients information will be printed and reviewed. Clinic will call patient with appointment information.
== END 2021-09-20 19:47 | disposition home or self-care (01) ==
PROVIDERS: Emergency Provider Nurse Practitioner Family
DX: S32.010A Wedge compression fracture of first lumbar vertebra, initial encounter for closed fracture (principal); W01.0XXA Fall on same level from slipping, tripping and stumbling without subsequent striking against object, initial encounter; I25.10 Atherosclerotic heart disease of native coronary artery without angina pectoris; E11.9 Type 2 diabetes mellitus without complications; Z86.73 Personal history of transient ischemic attack (TIA), and cerebral infarction without residual deficits; Z79.02 Long term (current) use of antithrombotics/antiplatelets; Z79.82 Long term (current) use of aspirin; Z95.1 Presence of aortocoronary bypass graft
CPT/HCPCS: 70450; 71045; 72131; 73502; 80053; 85025; 93005; 96361; 96374; 96375; 99283; J2270; J2405; J7050